=== PATIENT | female | born 1935 | race African-American/Black ===

== ENCOUNTER 2018-03-09 17:19 | Inpatient (IN) | payer MEDICARE, OTHER ==
[2018-03-09] MEDS ORDERED: Albuterol Nebulizer 2.5mg/3mL HHN STA (18:01)
[2018-03-09] MEDS ORDERED: Clindamycin 600mg/50mL 600 MG/50 ML BAG IV ONE (18:01)
[2018-03-09 18:06] LABS: HEMATOCRIT 44.5 % (41.0-60); HEMOGLOBIN 14.1 gm/dL (12-16); MEAN CELL VOLUME 95.1 fl (81-100); MEAN CORPUSCULAR HEMOGLOBIN 30.1 pg (27.0-31.0); MEAN CORPUSCULAR HGB CONC 31.7 pg (28.0-36.0); MEAN PLATELET VOLUME 7.6 fl; PLATELET COUNT 264 Th/cmm (150-400); RED BLOOD COUNT 4.68 Mil/cmm (3.80-5.20); RED CELL DISTRIBUTION WIDTH 15.2 % (11.5-20.0)
[2018-03-09] MEDS ORDERED: Albuterol Nebulizer 2.5mg/3mL HHN ONE (18:06)
[2018-03-09 18:13] LABS: WHITE BLOOD COUNT 16.3 Th/cmm (4.8-10.8)
[2018-03-09] MEDS ORDERED: Lactated Ringer 1,000 ML IV ONE (18:25)
[2018-03-09 18:28] LABS: ALB/GLOB RATIO 1.5 (1.0-1.8); ALBUMIN 3.8 gm/dL (3.7-5.3); ALKALINE PHOSPHATASE 85 U/L (34-104); ANION GAP 11.5 (7.0-16.0); BILIRUBIN,TOTAL 0.3 mg/dL (0.3-1.0); BUN - UREA NITROGEN 19 mg/dL (7-25); CALCIUM SERUM 10.3 mg/dL (8.6-10.3); CARBON DIOXIDE 36.9 mEq/L (21.0-31.0); CHLORIDE 100 mEq/L (98-107); CREATININE - SERUM 0.6 mg/dL (0.6-1.2); GLUCOSE 161 mg/dL (70-105); MAGNESIUM 2.3 mg/dL (1.9-2.7); PHOSPHOROUS 2.1 mg/dL (2.5-5.0); POTASSIUM SERUM 3.4 mEq/L (3.5-5.1); SGOT 11 U/L (13-39); SGPT/ALT 13 U/L (7-52); SODIUM SERUM 145 mEq/L (136-145); TOTAL PROTEIN,SERUM 6.4 gm/dL (6.0-8.3)
[2018-03-09 18:31] LABS: BAND NEUTROPHILE 4 % (0-10); LYMPHOCYTE 34 % (20-50); NEUTROPHILS 54 % (40-80)
[2018-03-09 18:32] LABS: MONOCYTE 8 % (2-10)
[2018-03-09] MEDS ORDERED: Sodium Phos / Potassium Phos 1.25 GM PACK PO ONE (20:03)
[2018-03-09] MEDS ORDERED: Potassium Chloride 20 mEq ER Tab PO ONE ×2 (20:03→20:14)
--- NOTE | 2018-03-09 20:14 | ED Physician Chart ---
ED Chief Complaint/HPI - Patient Information Date Seen:: 03/09/18 Time Seen:: 17:19 Chief Complaint:: sob and need for O2 History of Present Illness:: sob and need for O2 Allergies:: Allergies Allergy/AdvReac Type Severity Reaction Status Date / Time codeine Allergy Verified 03/09/18 17:25 Penicillins [PCN] Allergy Verified 03/09/18 17:25 Vitals:: Vital Signs - 8 hr 03/09/18 03/09/18 17:19 18:12 Temp 97.7 F HR 120 123 RR 20 18 BP 138/99 O2 Sat % 95 94 Historian:: Medical Records Review:: Nurse's Note Reviewed, Transfer documents Reviewed ED Review of Systems - Review of Systems General/Constitutional: No fever, No chills, No weight loss, No weakness, No diaphoresis, No edema, No loss of appetite Skin: No skin lesions, No rash, No bruising Head: No headache, No light-headedness Eyes: No loss of vision, No pain, No diplopia ENT: No earache, No nasal drainage, No sore throat, No tinnitus Neck: No neck pain, No swelling, No thyromegaly, No stiffness, No mass noted Cardio Vascular: No chest pain, No palpitations, No PND, No orthopnea, No edema Pulmonary: SOB, Cough, Sputum, No wheezing GI: No nausea, No vomiting, No diarrhea, No pain, No melena, No hematochezia, Constipation, No hematemesis G/U: No dysuria, No frequency, No hematuria Musculoskeletal: No bone or joint pain, No back pain, No muscle pain Endocrine: No polyuria, No polydipsia Psychiatric: No prior psych history, No depression, No anxiety, No suicidal ideation Hematopoietic: No bruising, No lymphadenopathy Allergic/Immuno: No urticaria, No angioedema Neurological: No syncope, No focal symptoms, No weakness, No paresthesia, No headache, No seizure, No dizziness, No confusion, No vertigo ED Past Medical History - Past Medical History Obtainable: No Past Medical History: HTN, DM, Asthma/COPD, PUD/GERD, Other (weakness; chronic pain syndrome; rheumatoid arthritis; cerebral infarction unspecified; pneumonia) Psychiatricy History: Depression, Schizophrenia Family Medical History - Family Member Mother History Unknown: Yes ED Physical Exam - Physical Examination General/Constitutional: Awake, Alert, GCS 15 Other Gen/Cons comments:: in mild to moderate respiratory distress overweight Head: Atraumatic Eyes: Lids, conjuctiva normal, PERRL, EOMI Skin: Nl inspection, No rash, No skin lesions, No ecchymosis, Well hydrated, No lymphadenopathy ENMT: External ears, nose nl Other ENMT comments:: early thrush on tongue? dentures in place Neck: Nontender, No nuchal rigidity, No stridor Other Respiratory comments:: rhonchi on both lung bases Cardio Vascular: RRR, No murmur, gallop, rubs, NL S1 S2 GI: No tenderness/rebounding/guarding, No organomegaly, No hernia, Normal BS's, Nondistended, No mass/bruits, No McBurney tenderness Extremities: No tenderness or effusion, Full ROM, normal strength in all extremities Other Extremities comments:: trace edema Neuro/Psych: Alert/oriented, Normal sensory exam, Normal motor strength, Judgement/insight normal, Mood normal, No focal deficits Misc: Normal back ED Labs/Radiology/EKG Results - Lab Results Results: Laboratory Tests 03/09/18 03/09/18 03/09/18 17:55 17:55 17:55 WBC 16.3 H RBC 4.68 Hgb 14.1 Hct 44.5 MCV 95.1 MCH 30.1 MCHC Differential 31.7 RDW 15.2 Plt Count 264 MPV 7.6 Add Manual Diff YES Band Neutrophils % 4 Neutrophils (Manual) 54 Lymphocytes 34 Monocytes 8 Sodium 145 Potassium 3.4 L Chloride 100 Carbon Dioxide 36.9 H Anion Gap 11.5 BUN 19 Creatinine 0.6 Est GFR ( Amer) TNP Est GFR (Non-Af Amer) TNP BUN/Creatinine Ratio 31.7 Glucose 161 H Whole Bld Lactic Acid Calcium 10.3 Phosphorus 2.1 L Magnesium 2.3 Total Bilirubin 0.3 AST 11 L ALT 13 Alkaline Phosphatase 85 Troponin I B-Natriuretic Peptide 23.0 Total Protein 6.4 Albumin 3.8 Globulin 2.6 Albumin/Globulin Ratio 1.5 03/09/18 03/09/18 17:55 17:55 WBC RBC Hgb Hct MCV MCH MCHC Differential RDW Plt Count MPV Add Manual Diff Band Neutrophils % Neutrophils (Manual) Lymphocytes Monocytes Sodium Potassium Chloride Carbon Dioxide Anion Gap BUN Creatinine Est GFR ( Amer) Est GFR (Non-Af Amer) BUN/Creatinine Ratio Glucose Whole Bld Lactic Acid 1.86 Calcium Phosphorus Magnesium Total Bilirubin AST ALT Alkaline Phosphatase Troponin I 0.02 B-Natriuretic Peptide Total Protein Albumin Globulin Albumin/Globulin Ratio ED Assessment - Assessment General Assessment: CXR: bilateral pneumonia more on the R than on the L. called Dr. Trimble for admit since he is covering for Dr. Avalos ED Septic Shock - . Is Septic Shock (SBP<90, OR Lactate>4 mmol\L) present?: No - <6hrs of presentation: Vital Signs: Vital Signs - 8 hr 03/09/18 03/09/18 17:19 18:12 Temp 97.7 F HR 120 123 RR 20 18 BP 138/99 O2 Sat % 95 94 ED Reassessment (Disposition) - Reassessment Reassessment Condition:: Improved - Diagnosis Diagnosis:: Bilateral pneumonia Hypoxia Oxygen dependence Leukocytosis Diabetes Hypertension Low potassium Low phosphorous weakness chronic pain syndrome rheumatoid arthritis cerebral infarction unspecified pneumonia - Patient Disposition Discharge/Transfer:: Acute Care w/in this hosp Admitted to:: Telemetry Admitting Medical Physician:: Gary Trimble Condition at Disposition:: Stable, Improved
[2018-03-09 21:35] VITALS: BP 131/93
[2018-03-09] MEDS ORDERED: Levofloxacin 500mg/100mL 500 MG/100 ML BAG IV ONE (21:44)
[2018-03-09] MEDS: D5-0.45NS 1,000 ML IV SCH (22:08)
[2018-03-09] MEDS: Levofloxacin 500mg/100mL 500 MG/100 ML BAG IV SCH (23:12)
[2018-03-09] MEDS ORDERED: Non-Formulary Item 1 EA (Oxycodone Hcl/Acetaminophen [Percocet 325 Mg-10 Mg*] 1 TAB) PO PRN (23:30)
[2018-03-09] MEDS ORDERED: Albuterol/Ipratropium Neb 3 ML AERS HHN ONE (23:49)
[2018-03-09] MEDS: Albuterol/Ipratropium Neb 3 ML AERS HHN PRN (23:54)
[2018-03-10] MEDS: methylPREDNISolone SS 40 mg Vial IV SCH ×3 (00:25→16:39)
[2018-03-10] MEDS: Albuterol/Ipratropium Neb 3 ML AERS HHN SCH ×4 (01:55→18:45)
[2018-03-10] MEDS: Fleet Enema 135 mL RC PRN (03:05)
[2018-03-10] MEDS: APAP/Oxycodone 5/325mg Tab PO PRN ×2 (08:41→16:37)
[2018-03-10] MEDS: Multivitamin w/ Minerals Tab PO SCH (08:47)
--- NOTE | 2018-03-10 09:40 | Diagnostic Imaging Report ---
Exam: Portable summation of chest. HISTORY: Shortness of breath. Findings: Portable upright examination of the chest at 1800 hours reviewed, no prior studies available comparison. Bony thorax intact. Bilateral shoulder prosthesis are noted. Mediastinal structures midline the heart is not enlarged. COPD changes are noted. The costophrenic angles are clear. Mild peribronchial thickening of the bases appreciated, early pneumonic infiltrate cannot be excluded. Follow-up exam is recommended. IMPRESSION: COPD changes. Mild atelectatic change in the bases, infiltrate cannot be excluded, follow-up exam is recommended.
--- NOTE | 2018-03-10 16:17 | Consultation ---
Consult Note - Consult Note Service Date: 03/10/18 Referring Physician: Gary Trimble Consult Note: PHYSICIAN Consultation Note: Date of Admission: 03/09/18 Purpose of Consultation: Pneumonia. UTI. Chief Complaint: Patient TORY CARRERA was admitted to [facility] with ALOC,PNEUMONIA. History of Present Illness: 82 year female with a history of dementia, admitted with shortness of breath and hypoxemia requiring oxygen, dyspnea on initial evaluation patient's temperature 97.7 degrees Fahrenheit and WBC count was 16, 000. Patient was suspected for pneumonia and started on antibiotic. Patient is unable to give any history. History taken from the chart. Past Medical History: HTN, DM, Asthma/COPD, PUD/GERD, CVA, rheumatoid arthritis , dementia. Allergies Allergy/AdvReac Type Severity Reaction Status Date / Time codeine Allergy Verified 03/09/18 17:25 Penicillins [PCN] Allergy Verified 03/09/18 17:25 Vital Signs Temp 97.6 F 03/10/18 16:07 Pulse 104 03/10/18 16:07 Resp 20 03/10/18 16:07 BP 99/72 03/10/18 16:07 Pulse Ox 95 03/10/18 16:07 Intake & Output 03/09/18 03/10/18 03/10/18 18:59 06:59 18:59 Intake Total 2185 Balance 2185 Weight (lbs) 81.647 kg 96.706 kg Intake: Intake, IV Amount 1945 Aztreonam 1 gm In 100 Dextrose 5% 50 ml @ 100 mls/hr IV Q12HR [facility] Rx#: [id number] Aztreonam 1 gm In 50 Dextrose 5% 50 ml @ 100 mls/hr IV Q8HR [facility] Rx#: [id number] Clindamycin 600mg/50mL 100 600 mg In 50 ml @ 100 mls /hr IV X1 ONE Rx#: [id number] D5-0.45NS 1,000 ml @ 75 595 mls/hr IV .[id number] [facility] Rx #:[id number] Lactated Ringer 1,000 ml 1000 @ 80 mls/hr IV .[id number] ONE Rx#:[id number] Levofloxacin 500mg/100mL 100 500 mg In 100 ml @ 100 mls/hr IV Q24HR [facility] Rx#: [id number] Oral 240 Other: # Voids 2 # Bowel Movements 1 Stool Characteristics Soft Formed Weight Source Estimated Bedscale Laboratory Results - last 24 hr 03/09/18 03/09/18 03/09/18 17:55 17:55 17:55 WBC 16.3 H RBC 4.68 Hgb 14.1 Hct 44.5 MCV 95.1 MCH 30.1 MCHC Differential 31.7 RDW 15.2 Plt Count 264 MPV 7.6 Add Manual Diff YES Band Neutrophils % 4 Neutrophils (Manual) 54 Lymphocytes 34 Monocytes 8 Sodium 145 Potassium 3.4 L Chloride 100 Carbon Dioxide 36.9 H Anion Gap 11.5 BUN 19 Creatinine 0.6 Est GFR ( Amer) TNP Est GFR (Non-Af Amer) TNP BUN/Creatinine Ratio 31.7 Glucose 161 H Whole Bld Lactic Acid Calcium 10.3 Phosphorus 2.1 L Magnesium 2.3 Total Bilirubin 0.3 AST 11 L ALT 13 Alkaline Phosphatase 85 Troponin I B-Natriuretic Peptide 23.0 Total Protein 6.4 Albumin 3.8 Globulin 2.6 Albumin/Globulin Ratio 1.5 03/09/18 03/09/18 03/10/18 17:55 17:55 03:00 WBC RBC Hgb Hct MCV MCH MCHC Differential RDW Plt Count MPV Add Manual Diff Band Neutrophils % Neutrophils (Manual) Lymphocytes Monocytes Sodium Potassium Chloride Carbon Dioxide Anion Gap BUN Creatinine Est GFR ( Amer) Est GFR (Non-Af Amer) BUN/Creatinine Ratio Glucose Whole Bld Lactic Acid 1.86 Calcium Phosphorus Magnesium Total Bilirubin AST ALT Alkaline Phosphatase Troponin I 0.02 0.04 B-Natriuretic Peptide Total Protein Albumin Globulin Albumin/Globulin Ratio Home Medication Medication Instructions Recorded Type Acetaminophen [Tylenol] 650 mg PO Q4H PRN 03/09/18 History Baclofen [Lioresal*] 10 mg PO HS 03/09/18 History Benazepril HCl 5 mg PO DAILY 03/09/18 History Carvedilol [Coreg] 3.125 mg PO BID 03/09/18 History Celecoxib 100 mg PO BID 03/09/18 History Diclofenac Sodium [Voltaren] 2 gm TP Q12H PRN 03/09/18 History Fleet Enema 135 ml RC Q2D PRN 03/09/18 History Furosemide [Lasix] 40 mg PO DAILY 03/09/18 History Gabapentin 300 mg PO TID 03/09/18 History Ipratropium/Albuterol Sulfate 3 ml IH Q4H PRN 03/09/18 History [Iprat-Albut 0.5-3(2.5) mg/3 ml] Lidocaine 2% Gel [Xylocaine 2% Gel] 5 ml TP Q8H 03/09/18 History Loratadine 10 mg PO DAILY 03/09/18 History Magnesium Hydroxide [Milk of 30 ml PO HS PRN 03/09/18 History Magnesia] Melatonin 3 mg PO HS 03/09/18 History Multivitamin with Minerals 1 tab PO DAILY 03/09/18 History [Nature's Blend Multiple Vitamin with Minerals] Nitroglycerin [Nitrostat*] 0.4 mg SL Q5MIN PRN 03/09/18 History Oxycodone HCl/Acetaminophen 1 tab PO Q6H PRN 03/09/18 History [Percocet 325 mg-10 mg*] Pantoprazole [Protonix] 20 mg PO DAILY 03/09/18 History Potassium Chloride 10 meq PO DAILY 03/09/18 History Prednisone [Deltasone] 40 mg PO DAILY 03/09/18 History Sennosides A and B [Senna] 8.6 mg PO HS 03/09/18 History Tramadol HCl [Ultram] 100 mg PO Q8H PRN 03/09/18 History Current Medications Generic Name Dose Route Start Last Admin Trade Name [facility] PRN Reason Stop Dose Admin Acetaminophen 650 mg 03/10/18 01:49 03/10/18 02:11 Tylenol PO 05/09/18 01:48 650 mg Q6H PRN Administration mild pain Albuterol/Ipratropium 3 ml 03/10/18 01:00 03/10/18 13:38 Duoneb Neb [facility] 05/09/18 00:59 3 ml Q6HRT [facility] Administration Albuterol/Ipratropium 3 ml 03/09/18 23:33 03/09/18 23:54 Duoneb Neb [facility] 05/08/18 23:32 3 ml Q2HRT PRN Administration Wheezing Baclofen 10 mg 03/10/18 21:00 Lioresal PO 05/09/18 20:59 HS [facility] Benazepril HCl 5 mg 03/10/18 09:00 03/10/18 08:42 Lotensin PO 05/09/18 08:59 5 mg DAILY [facility] Administration Carvedilol 3.125 mg 03/10/18 08:00 03/10/18 08:41 Coreg PO 05/09/18 07:59 3.125 mg BIDWM [facility] Administration Celecoxib 100 mg 03/10/18 09:00 03/10/18 08:43 Celebrex PO 05/09/18 08:59 100 mg BID [facility] Administration Gabapentin 300 mg 03/10/18 09:00 03/10/18 08:42 Neurontin PO 05/09/18 08:59 300 mg TID [facility] Administration Aztreonam 1 gm/ Dextrose 50 mls @ 100 mls/hr 03/09/18 21:00 03/10/18 06:07 IV 05/08/18 20:59 Not Given Q8HR [facility] Dextrose/Sodium Chloride 1,000 mls @ 75 mls/hr 03/09/18 20:58 03/10/18 06:04 D5-0.45ns IV 05/08/18 20:57 75 mls/hr .[id number] [facility] Infusion Levofloxacin 500 mg in 100 mls @ 100 mls/hr 03/09/18 21:30 03/10/18 00:14 Levaquin Pb IV 05/08/18 21:29 Infused Q24HR [facility] Infusion Loratadine 10 mg 03/10/18 09:00 03/10/18 08:42 Claritin PO 05/09/18 08:59 10 mg DAILY [facility] Administration Methylprednisolone Sodium Succinate 40 mg 03/10/18 00:00 03/10/18 08:46 Solu-Medrol IV 05/09/18 00:00 Not Given Q8H [facility] Nitroglycerin 0.4 mg 03/09/18 23:30 Nitrostat SL 05/08/18 23:29 Q5MIN PRN Chest Pain Oxycodone/Acetaminophen 1 tab 03/10/18 08:00 03/10/18 08:41 Percocet 5/325mg Oral Tab PO 05/09/18 07:59 1 tab Q6H PRN Administration severe pain Senna 8.6 mg 03/10/18 21:00 Senna PO 05/09/18 20:59 HS [facility] Sodium Phosphate 135 ml 03/09/18 23:30 03/10/18 03:05 Fleet Enema RC 05/08/18 23:29 135 ml Q2D PRN Administration Constipation Review of Systems: A 12 point ROS was reviewed with the pertinent positive and negatives noted in the HPI. Social History Smoking Status Former smoker Family Medical History Family Medical History Start: 03/09/18 20: 55 Freq: ONCE Status: Active Protocol: Document 03/09/18 20:55 [id number] (Rec: 03/09/18 23:50 [id number] ) Family Medical History Mother History Unknown Yes Physical Exam: General: Comfortable not in acute distress. HEENT: Head: Normocephalic. Oral cavity: Moist, pink tongue. Eyes: Pallor is present. Pupils PERRLA. EOMI. Neck: Supple, no JVD. No use of accessory neck muscles. Cardio: S1 and S2 within normal limits regular rhythm no murmur or gallop Respiratory: Vesicular breath sound no crackles no wheezing. Abdominal: Soft, nontender, nondistended, bowel sounds present Genital/Urinary: Deferred. Extremities: No cyanosis, no clubbing, no edema. Neurological: Alert, but unable to communicate. Assessment: 1. Leukocytosis. Suspect sepsis. 2. Pneumonia. 3. Dementia. 4. Diabetes mellitus type 2. 5. Hypertension. 6. Obesity. 7. Dementia mellitus type II 8. Rheumatoid arthritis. 9. History of CVA. Plan: Continue Levaquin and aztreonam. Follow-up sepsis workup. Thank you, Dr. Trimble for involving me in taking care of this patient Signed, Joshua Gilmore M.D. 03/10/[id number]
[2018-03-10] MEDS ORDERED: Lidocaine 2% Gel 5 mL TP ONE (17:41)
--- NOTE | 2018-03-10 18:36 | History & Physical ---
ADMIT DATE: 03/10/2018 PATIENT IDENTIFICATION: The patient is an 82-year-old female. CHIEF COMPLAINT: "I want to sleep." HISTORY OF PRESENT ILLNESS: This is an 82[place]year[place], brought into the Emergency Room for evaluation of shortness of breath. The patient was worked up in the Emergency Room, noted to have pneumonitis. The patient is advised to be admitted for further management. Due to the patient's underlying medical problem, I am unable to get meaningful history from patient. PAST MEDICAL HISTORY: Remarkable for: 1. DJD. 2. GERD. 3. Chronic pain. 4. Hypertension. 5. Hyperlipidemia. 6. Peripheral neuropathy. 7. Dementia. 8. Psychotic disorder. 9. Congestive heart failure. MEDICATIONS AT HOME: Diclofenac, Lasix, potassium, albuterol and Atrovent nebulizer treatment, lidocaine gel, pantoprazole, prednisone, tramadol, Tylenol, baclofen, benazepril, carvedilol, Fleets Enema, gabapentin, melatonin, nitroglycerin, oxycodone p.r.n., and senna. ALLERGIES: THE PATIENT IS ALLERGIC TO PENICILLIN AND CODEINE. SOCIAL HISTORY: The patient [place]. The patient has no history of smoking cigarette, alcohol, or drug use. FAMILY MEDICAL HISTORY: Unavailable. REVIEW OF SYSTEMS: Unable to get meaningful history from the patient due to current condition. PHYSICAL EXAMINATION: GENERAL: The patient is alert, awake, not cooperative, lying in the bed. VITAL SIGNS: Temperature 97.6, pulse is 106, respiratory rate is 18, blood pressure 100/70. HEENT: Normocephalic, atraumatic. Extraocular muscles are intact. Tongue more pink and coated. Poor dentition noted. NECK: Supple. No JVD, no hepatojugular reflux. No lymphadenopathy, thyromegaly or carotid bruit. HEART: Both heart sounds are regular. CHEST AND LUNGS: Equal in expansion with diffuse expiratory wheezing. ABDOMEN: Soft. No guarding, no rigidity. Liver, spleen not palpable. No palpable mass. EXTREMITIES: No edema, no cyanosis. Peripheral pulses are +1. No calf tenderness. NEUROLOGIC: Alert, awake, but does not follow any commands. AVAILABLE DIAGNOSTIC DATA: Performed in the Emergency Room, which includes white count of 16.3, hemoglobin 14.1, platelet count 264, potassium 3.4, BUN and creatinine 19 and 0.6, glucose of 161. Liver functions are normal. This patient had a chest x-ray, remarkable for atelectasis versus infiltrate on the right lower lobe. CLINICAL IMPRESSION: 1. Right lower lobe pneumonia. 2. Respiratory insufficiency with bronchospasm ruled out underlying asthma and chronic obstructive pulmonary disease. 3. Hypertension. 4. Congestive heart failure. 5. Coronary artery disease. 6. Degenerative joint disease. 7. Psychotic disorder. 8. Chronic pain. PLAN: 1. The patient will be admitted to telemetry unit, provide oxygen. 2. Nebulizer treatment. 3. IV antibiotic. 4. Infectious Disease consultation. 5. Psych consultation. 6. Appropriate home medicine reconciliation. 7. General nursing care. 8. Cardiac enzymes. 9. Follow lab. 10. Follow consult and recommendation. 11. Care plan reviewed and discussed with staff. JOB# [id number]
[2018-03-10] MEDS ORDERED: Non-Formulary Item 1 EA (Melatonin [Melatonin] 3 MG) PO SCH (21:00)
[2018-03-10] MEDS: Levofloxacin 500mg/100mL 500 MG/100 ML BAG IV SCH (21:15)
[2018-03-11] MEDS: APAP/Oxycodone 5/325mg Tab PO PRN ×3 (01:41→20:40)
[2018-03-11] MEDS: Albuterol/Ipratropium Neb 3 ML AERS HHN SCH ×5 (01:59→18:40)
[2018-03-11] MEDS: methylPREDNISolone SS 40 mg Vial IV SCH ×4 (02:06→23:10)
[2018-03-11] MEDS: Multivitamin w/ Minerals Tab PO SCH (08:20)
[2018-03-11 09:27] LABS: HEMATOCRIT 37.1 % (41.0-60); HEMOGLOBIN 12.4 gm/dL (12-16); MEAN CELL VOLUME 94.9 fl (81-100); MEAN CORPUSCULAR HEMOGLOBIN 31.7 pg (27.0-31.0); MEAN CORPUSCULAR HGB CONC 33.4 pg (28.0-36.0); MEAN PLATELET VOLUME 8.2 fl; RED BLOOD COUNT 3.91 Mil/cmm (3.80-5.20); RED CELL DISTRIBUTION WIDTH 15.5 % (11.5-20.0); WHITE BLOOD COUNT 8.8 Th/cmm (4.8-10.8)
[2018-03-11 09:30] LABS: ALB/GLOB RATIO 1.4 (1.0-1.8); ALBUMIN 3.1 gm/dL (3.7-5.3); ALKALINE PHOSPHATASE 69 U/L (34-104); ANION GAP 12.2 (7.0-16.0); BILIRUBIN,TOTAL 0.3 mg/dL (0.3-1.0); BUN - UREA NITROGEN 13 mg/dL (7-25); CALCIUM SERUM 9.2 mg/dL (8.6-10.3); CARBON DIOXIDE 35.9 mEq/L (21.0-31.0); CHLORIDE 96 mEq/L (98-107); CREATININE - SERUM 0.4 mg/dL (0.6-1.2); GLUCOSE 180 mg/dL (70-105); POTASSIUM SERUM 4.1 mEq/L (3.5-5.1); SGOT 9 U/L (13-39); SGPT/ALT 10 U/L (7-52); SODIUM SERUM 140 mEq/L (136-145); TOTAL PROTEIN,SERUM 5.3 gm/dL (6.0-8.3)
--- NOTE | 2018-03-11 09:51 | Diagnostic Imaging Report ---
Exam: CT examination of chest. HISTORY: Shortness of breath. Total DLP equals 418 CTDI equals 11.4 Findings: Multiple contiguous thin section of the chest were obtained without administration of contrast material from thoracic outlet to the upper abdomen the study therefore is limited The study demonstrates the evidence for left basilar pneumonia pleural thickening and small effusion Mediastinal structures midline adenopathy is difficult to appreciated due to lack of contrast material. The right lung parenchyma is well aerated. There is evidence for right basilar atelectasis early infiltrate cannot be excluded. Follow-up examination is recommended. Normal appearance with vessels appreciated adenopathy cannot be excluded due to lack of contrast material Bony structures demonstrate no evidence for lytic or blastic changes. IMPRESSION: left lower lobe pneumonia small effusion pleural thickening.
[2018-03-11 11:22] LABS: PLATELET COUNT 37 Th/cmm (150-400)
[2018-03-11 12:47] LABS: LYMPHOCYTE 39 % (20-50); MONOCYTE 6 % (2-10); NEUTROPHILS 55 % (40-80); PLATELET ESTIMATE DECREASED PLATELETS (NORMAL)
[2018-03-11] MEDS ORDERED: Acetylcysteine 10% 10 ML VIAL HHN SCH (13:00)
[2018-03-11 13:28] LABS: % BASOPHILS 0.3 % (0.0-2.0); % EOSINOPHILS 0.7 % (0.0-5.0); % LYMPHOCYTES 20.6 % (20.0-50.0); % MONOCYTES 3.4 % (2.0-10.0); EOSINOPHILE ABSOLUTE 0.1 Th/cmm (0.1-0.4); HEMATOCRIT 38.9 % (41.0-60); HEMOGLOBIN 12.8 gm/dL (12-16); LYMPHOCYTE ABSOLUTE 2.3 Th/cmm (1.5-3.0); MEAN CELL VOLUME 95.1 fl (81-100); MEAN CORPUSCULAR HEMOGLOBIN 31.2 pg (27.0-31.0); MEAN CORPUSCULAR HGB CONC 32.8 pg (28.0-36.0); MEAN PLATELET VOLUME 7.7 fl; MONOCYTE ABSOLUTE 0.4 Th/cmm (0.3-1.0); NEUTROPHILE ABSOLUTE 8.4 Th/cmm (1.8-8.0); RED BLOOD COUNT 4.09 Mil/cmm (3.80-5.20); RED CELL DISTRIBUTION WIDTH 14.4 % (11.5-20.0)
[2018-03-11 13:29] LABS: WHITE BLOOD COUNT 11.2 Th/cmm (4.8-10.8)
[2018-03-11 13:30] LABS: PLATELET COUNT 209 Th/cmm (150-400)
--- NOTE | 2018-03-11 15:15 | Consultation ---
DATE OF CONSULTATION: 03/11/2018 PSYCHIATRIC CONSULT AGE: 82. SEX: Female. PHYSICIAN: Dr. Trimble. TYPE OF THE REPORT: Psychiatric consult. REASON FOR THE CONSULT: Depression. HISTORY OF PRESENT ILLNESS: The patient is an 82-year-old female who was admitted to the hospital because of shortness of breath. The patient also wanted to sleep. The patient has been in a depressed mood. The patient said "I have been depressed most of my life." The patient added that she has been having lack of motivations and lack of energy. She also added that she wanted to see a psychiatrist because of her depression. She denies any intention to harm herself or others. She is also complaining of insomnia. PAST PSYCHIATRIC HISTORY: The patient has history of depression. The patient also might have history of bipolar. PAST MEDICAL HISTORY: The patient has degenerative joint disease as well as gastroesophageal reflux disease, hypertension, hyperlipidemia, peripheral neuropathy, congestive heart failure and chronic pain. SOCIAL HISTORY: The patient lives in [facility]. She has 6 children, 4 daughters and 2 sons. The patient denied alcohol or street drug use. She denies legal issues or abuse issues. MENTAL STATUS EXAM: The patient appears slightly older than her stated age. Anxious. Flat affect. In a depressed mood. Thought processes are mainly goal directed. The patient denied any hallucinations or delusions. She denies any thoughts of suicide or homicide. The patient is alert and oriented to time, place, person and situation. Intact immediate, recent and remote memories. Fair insight and fair judgment. She seems to be of average intelligence based on her ability. ASSESSMENT: PRIMARY DIAGNOSIS: Major depression, severe, recurrent, without psychotic features. Rule out bipolar disorder, depressed episode. TREATMENT PLAN: We will start the patient on Lexapro and we will adjust the dose. We will continue monitoring the patient and evaluating her condition. Thanks to Dr. Trimble and we will follow with you. [facility]# [id number]
[2018-03-11] MEDS: Acetylcysteine 10% 10 ML VIAL HHN SCH ×2 (15:37→22:22)
[2018-03-11] MEDS: Levofloxacin 500mg/100mL 500 MG/100 ML BAG IV SCH (20:57)
[2018-03-11] MEDS: D5-0.45NS 1,000 ML IV SCH (22:07)
--- NOTE | 2018-03-12 02:27 | Progress Notes ---
DATE: IDENTIFICATION: An 82-year-old female. SUBJECTIVE: The patient seen and examined. The patient is lying in the bed. The patient continues to cough and congested. Follow up labs reveal a platelet count of 37,000, which is a big drop from 264. The patient has no active bleeding. The patient has productive cough and congestion at this time bringing up green yellow phlegm. PHYSICAL EXAMINATION: VITAL SIGNS: Temperature 97, pulse is 91, respiratory rate 18, and blood pressure 112/60. HEENT: No facial asymmetry. NECK: Supple, no JVD. HEART: Regular. CHEST AND LUNGS: Equal in expansion with expiratory wheezing. ABDOMEN: Soft, no guarding, no rigidity. Bowel sounds present. No palpable mass. EXTREMITIES: No edema. CLINICAL IMPRESSION: 1. Right lower lobe pneumonia. 2. Bronchospasm. 3. Thrombocytopenia, needs to rule out lab error. 4. Psychotic disorder. 5. Degenerative joint disease. 6. Chronic pain syndrome. PLAN: 1. Oxygen. 2. Nebulizer treatment. 3. Mucomyst. 4. IV antibiotic. 5. Repeat CBC. 6. General nursing care. 7. Follow lab. 8. Follow consult and recommendation. 9. Care plan has discussed with staff. JOB# [id number]
[2018-03-12] MEDS: Escitalopram Oxalate 5 mg Tab PO SCH ×2 (05:25→20:09)
[2018-03-12] MEDS: Acetylcysteine 10% 10 ML VIAL HHN SCH ×2 (06:01→19:06)
[2018-03-12] MEDS: Albuterol/Ipratropium Neb 3 ML AERS HHN SCH ×4 (06:02→19:02)
[2018-03-12] MEDS: methylPREDNISolone SS 40 mg Vial IV SCH ×2 (08:03→15:23)
[2018-03-12] MEDS: Multivitamin w/ Minerals Tab PO SCH (08:06)
[2018-03-12] MEDS: APAP/Oxycodone 5/325mg Tab PO PRN ×3 (08:12→23:51)
[2018-03-12] MEDS ORDERED: methylPREDNISolone SS 40 mg Vial IV ONE (10:20)
[2018-03-12] MEDS ORDERED: Potassium Chloride 10 mEq ER Tab PO ONE (10:41)
[2018-03-12] MEDS: Potassium Chloride 10 mEq ER Tab PO SCH (10:45)
--- NOTE | 2018-03-12 11:24 | Infectious Disease Prog Note ---
Infectious Disease Subjective - Review of Systems Service Date: 03/12/18 Subjective: There is no new change, no fever. Infectious Disease Objective - Results Result Diagrams: 03/11/18 13:02 03/11/18 09:02 Recent Labs: Laboratory Last Values WBC 11.2 Th/cmm (4.8-10.8) H D 03/11/18 13:02 RBC 4.09 Mil/cmm (3.80-5.20) 03/11/18 13:02 Hgb 12.8 gm/dL (12-16) 03/11/18 13:02 Hct 38.9 % (41.0-60) L 03/11/18 13:02 MCV 95.1 fl (81-100) 03/11/18 13:02 MCH 31.2 pg (27.0-31.0) H 03/11/18 13:02 MCHC Differential 32.8 pg (28.0-36.0) 03/11/18 13:02 RDW 14.4 % (11.5-20.0) 03/11/18 13:02 Plt Count 209 Th/cmm (150-400) D 03/11/18 13:02 MPV 7.7 fl 03/11/18 13:02 Add Manual Diff YES 03/11/18 09:02 Neutrophils % 75.0 % (40.0-80.0) 03/11/18 13:02 Band Neutrophils % 4 % (0-10) 03/09/18 17:55 Lymphocytes % 20.6 % (20.0-50.0) 03/11/18 13:02 Monocytes % 3.4 % (2.0-10.0) 03/11/18 13:02 Eosinophils % 0.7 % (0.0-5.0) 03/11/18 13:02 Basophils % 0.3 % (0.0-2.0) 03/11/18 13:02 Neutrophils (Manual) 55 % (40-80) 03/11/18 09:02 Lymphocytes 39 % (20-50) 03/11/18 09:02 Monocytes 6 % (2-10) 03/11/18 09:02 Platelet Estimate DECREASED PLATELETS (NORMAL) 03/11/18 09:02 Sodium 140 mEq/L (136-145) 03/11/18 09:02 Potassium 4.1 mEq/L (3.5-5.1) 03/11/18 09:02 Chloride 96 mEq/L (98-107) L 03/11/18 09:02 Carbon Dioxide 35.9 mEq/L (21.0-31.0) H 03/11/18 09:02 Anion Gap 12.2 (7.0-16.0) 03/11/18 09:02 BUN 13 mg/dL (7-25) 03/11/18 09:02 Creatinine 0.4 mg/dL (0.6-1.2) L 03/11/18 09:02 Est GFR ( Amer) TNP 03/11/18 09:02 Est GFR (Non-Af Amer) TNP 03/11/18 09:02 BUN/Creatinine Ratio 32.5 03/11/18 09:02 Glucose 180 mg/dL (70-105) H 03/11/18 09:02 Whole Bld Lactic Acid 1.86 mmol/L (0.60-1.99) 03/09/18 17:55 Calcium 9.2 mg/dL (8.6-10.3) 03/11/18 09:02 Phosphorus 2.1 mg/dL (2.5-5.0) L 03/09/18 17:55 Magnesium 2.3 mg/dL (1.9-2.7) 03/09/18 17:55 Total Bilirubin 0.3 mg/dL (0.3-1.0) 03/11/18 09:02 AST 9 U/L (13-39) L 03/11/18 09:02 ALT 10 U/L (7-52) 03/11/18 09:02 Alkaline Phosphatase 69 U/L (34-104) 03/11/18 09:02 Troponin I 0.03 ng/mL (0.01-0.05) 03/10/18 17:00 B-Natriuretic Peptide 23.0 pg/mL (5.0-100.0) 03/09/18 17:55 Total Protein 5.3 gm/dL (6.0-8.3) L 03/11/18 09:02 Albumin 3.1 gm/dL (3.7-5.3) L 03/11/18 09:02 Globulin 2.2 gm/dL 03/11/18 09:02 Albumin/Globulin Ratio 1.4 (1.0-1.8) 03/11/18 09:02 - Physical Exam Vitals and I&O: Vital Signs Temp 96.2 F 03/12/18 07:56 Pulse 110 03/12/18 10:44 Resp 18 03/12/18 10:43 BP 158/120 03/12/18 10:44 Pulse Ox 94 03/12/18 10:43 Intake & Output 03/11/18 03/12/18 03/12/18 18:59 06:59 18:59 Intake Total 650 200 Balance 650 200 Weight (lbs) 101.151 kg 97.069 kg Intake: Intake, IV Amount 50 50 Aztreonam 1 gm In 50 50 Dextrose 5% 50 ml @ 100 mls/hr IV Q8HR [facility] Rx#: [id number] Oral 600 150 Other: # Voids 4 1 # Bowel Movements 1 Stool Characteristics Soft Soft Formed Weight Source Bedscale Bedscale Active Medications: Current Medications Acetaminophen (Tylenol) 650 mg PO Q6H PRN PRN Reason: mild pain Stop: 05/09/18 01:48 Acetylcysteine (Mucomyst 10%) 3 ml HHN Q8HR [facility] Stop: 05/10/18 12:59 Last Admin: 03/12/18 06:01 Dose: 3 ml Albuterol/Ipratropium (Duoneb Neb) 3 ml HHN Q2HRT PRN PRN Reason: Wheezing Stop: 05/08/18 23:32 Last Admin: 03/09/18 23:54 Dose: 3 ml Albuterol/Ipratropium (Duoneb Neb) 3 ml HHN [id number] Stop: 05/10/18 14:59 Last Admin: 03/12/18 10:41 Dose: 3 ml Baclofen (Lioresal) 10 mg PO HS [facility] Stop: 05/09/18 20:59 Last Admin: 03/11/18 20:36 Dose: 10 mg Benazepril HCl (Lotensin) 5 mg PO DAILY [facility] Stop: 05/09/18 08:59 Last Admin: 03/12/18 08:05 Dose: 5 mg Carvedilol (Coreg) 12.5 mg PO BIDWM [facility] Stop: 05/11/18 10:29 Last Admin: 11/26/18 10:44 Dose: 12.5 mg Celecoxib (Celebrex) 100 mg PO BID [facility] Stop: 05/09/18 08:59 Last Admin: 03/12/18 08:04 Dose: 100 mg Escitalopram Oxalate (Lexapro) 5 mg PO HS [facility]; Protocol Stop: 05/10/18 20:59 Last Admin: 03/12/18 05:25 Dose: Not Given Furosemide (Lasix) 40 mg PO DAILY [facility] Stop: 05/11/18 10:14 Last Admin: 03/12/18 10:43 Dose: 40 mg Gabapentin (Neurontin) 300 mg PO TID [facility] Stop: 05/09/18 08:59 Last Admin: 03/12/18 08:06 Dose: 300 mg Guaifenesin (Mucinex) 600 mg PO Q12HR [facility] Stop: 05/11/18 10:14 Last Admin: 03/12/18 10:43 Dose: 600 mg Aztreonam 1 gm/ Dextrose 50 mls @ 100 mls/hr IV Q8HR [facility] Stop: 05/08/18 20:59 Last Admin: 03/12/18 05:17 Dose: 100 mls/hr Levofloxacin (Levaquin Pb) 500 mg in 100 mls @ 100 mls/hr IV Q24HR [facility] Stop: 05/08/18 21:29 Last Admin: 03/11/18 20:57 Dose: 100 mls/hr Loratadine (Claritin) 10 mg PO DAILY [facility] Stop: 05/09/18 08:59 Last Admin: 03/12/18 08:04 Dose: 10 mg Methylprednisolone Sodium Succinate (Solu-Medrol) 40 mg IV Q8H [facility] Stop: 05/09/18 00:00 Last Admin: 03/12/18 08:03 Dose: 40 mg Nitroglycerin (Nitrostat) 0.4 mg SL Q5MIN PRN PRN Reason: Chest Pain Stop: 05/08/18 23:29 Oxycodone/Acetaminophen (Percocet 5/325mg Oral Tab) 1 tab PO Q6H PRN PRN Reason: severe pain Stop: 05/09/18 07:59 Last Admin: 03/12/18 08:12 Dose: 1 tab Potassium Chloride (Klor-Con) 10 meq PO DAILY [facility] Stop: 05/11/18 10:14 Last Admin: 03/12/18 10:45 Dose: 10 meq Senna (Senna) 8.6 mg PO HS [facility] Stop: 05/09/18 20:59 Last Admin: 03/11/18 20:36 Dose: 8.6 mg Sodium Phosphate (Fleet Enema) 135 ml RC Q2D PRN PRN Reason: Constipation Stop: 05/08/18 23:29 Last Admin: 03/10/18 03:05 Dose: 135 ml General: no acute distress, well developed, well nourished HEENT: atraumatic, normocephalic, PERRLA Neck: supple, no thyromegaly, no lymphadenopathy Cardiovascular: S1S2, regular Lungs: clear to auscultation bilaterally, clear to percussion Abdomen: soft, no tender, no distended Extremities: no cyanosis, no clubbing, no edema Neurological: awake, alert Skin: intact Infectious Disease Assmt/Plan - Assessment Assessment: 1. Leukocytosis. Suspect sepsis. 2. Pneumonia. 3. Dementia. 4. Diabetes mellitus type 2. 5. Hypertension. 6. Obesity. 7. Dementia mellitus type II 8. Rheumatoid arthritis. 9. History of CVA. - Plan Plan: Continue levaquin, DC azactam. Depending on the culture report will define final antibiotic therapy.
[2018-03-12] MEDS: Levofloxacin 500mg/100mL 500 MG/100 ML BAG IV SCH (21:53)
[2018-03-12] MEDS: Albuterol/Ipratropium Neb 3 ML AERS HHN PRN (23:57)
[2018-03-13] MEDS: methylPREDNISolone SS 40 mg Vial IV SCH ×3 (00:18→16:44)
--- NOTE | 2018-03-13 01:22 | Progress Notes ---
DATE: 03/12/2018 I am covering for Dr. Crowder. SUBJECTIVE: Case is discussed with staff of the patient and reviewed records. This is an 82-year-old female who was admitted on 03/09/2018 because of shortness of breath. The patient has been depressed most of her life. She added that she has been having lack of motivation and energy. She wanted to see a Psychiatry because of her depression. She denies any intention to harm herself or anybody. Complains of not sleeping well. The patient continues to be depressed and overwhelmed. She denies any intent to harm herself or anybody. She has been compliant with the medication with no side effects, no sedation, and no nausea. She is on Lexapro 5 mg daily. PLAN: I would recommend to continue her medication and follow up with her psychiatrist when discharged. Thank you very much for allowing me to participate in the care of this most interesting lady. JOB# [id number]
[2018-03-13] MEDS: Albuterol/Ipratropium Neb 3 ML AERS HHN PRN ×2 (02:27→22:55)
[2018-03-13] MEDS: Acetylcysteine 10% 10 ML VIAL HHN SCH ×4 (02:30→22:55)
[2018-03-13] MEDS: Albuterol/Ipratropium Neb 3 ML AERS HHN SCH ×4 (06:56→18:56)
[2018-03-13 07:16] LABS: % BASOPHILS 0.2 % (0.0-2.0); % EOSINOPHILS 0.1 % (0.0-5.0); % LYMPHOCYTES 11.2 % (20.0-50.0); % MONOCYTES 2.2 % (2.0-10.0); % NEUTROPHILS 86.3 % (40.0-80.0); HEMATOCRIT 38.7 % (41.0-60); LYMPHOCYTE ABSOLUTE 1.4 Th/cmm (1.5-3.0); MEAN CELL VOLUME 93.7 fl (81-100); MEAN CORPUSCULAR HEMOGLOBIN 31.4 pg (27.0-31.0); MEAN CORPUSCULAR HGB CONC 33.5 pg (28.0-36.0); MEAN PLATELET VOLUME 8.1 fl; MONOCYTE ABSOLUTE 0.3 Th/cmm (0.3-1.0); NEUTROPHILE ABSOLUTE 10.8 Th/cmm (1.8-8.0); PLATELET COUNT 236 Th/cmm (150-400); RED BLOOD COUNT 4.13 Mil/cmm (3.80-5.20); RED CELL DISTRIBUTION WIDTH 14.5 % (11.5-20.0); WHITE BLOOD COUNT 12.5 Th/cmm (4.8-10.8)
[2018-03-13 07:45] LABS: ALB/GLOB RATIO 1.5 (1.0-1.8); ALBUMIN 3.4 gm/dL (3.7-5.3); ALKALINE PHOSPHATASE 66 U/L (34-104); ANION GAP 12.2 (7.0-16.0); BILIRUBIN,TOTAL 0.3 mg/dL (0.3-1.0); BUN - UREA NITROGEN 17 mg/dL (7-25); CALCIUM SERUM 9.7 mg/dL (8.6-10.3); CHLORIDE 98 mEq/L (98-107); CREATININE - SERUM 0.5 mg/dL (0.6-1.2); GLUCOSE 136 mg/dL (70-105); MAGNESIUM 2.1 mg/dL (1.9-2.7); POTASSIUM SERUM 4.2 mEq/L (3.5-5.1); SGOT 10 U/L (13-39); SGPT/ALT 11 U/L (7-52); SODIUM SERUM 137 mEq/L (136-145); TOTAL PROTEIN,SERUM 5.7 gm/dL (6.0-8.3)
--- NOTE | 2018-03-13 07:57 | Progress Notes ---
DATE: 03/12/2018 PATIENT'S ID: An 82-year-old female. SUBJECTIVE: The patient seen and examined. The patient continues to cough and bringing up yellow phlegm. CT scan of the chest revealed left lower lobe pneumonia with some effusion. Blood pressure is continues to be elevated. The patient was taking antihypertensive medication along with the diuretics as well. PHYSICAL EXAMINATION: VITAL SIGNS: Temperature 96.2, pulse is 100, respiratory rate is 20, blood pressure is 180/100. HEENT: No facial asymmetry. NECK: Supple, no JVD. HEART: Regular. CHEST AND LUNGS: Equal in expansion, expiratory wheezing throughout. ABDOMEN: Soft. No guarding or rigidity. Bowel sounds present. No palpable mass. EXTREMITIES: No edema. CLINICAL IMPRESSION: 1. Left lower lobe pneumonia. 2. Bronchospasm. 3. Hypertension. 4. Degenerative joint disease. 5. Dementia. 6. Psychotic disorder. PLAN: 1. Adjust antihypertensive medicine. 2. Continue her benazepril and add Lasix and potassium. 3. Nebulizer treatment. 4. IV antibiotic. 5. Mucinex. 6. General nursing care. 7. Follow lab. 8. Follow consult recommendation. 9. Care plan reviewed and discussed with staff. JOB# [id number]
[2018-03-13] MEDS: Multivitamin w/ Minerals Tab PO SCH (08:17)
[2018-03-13] MEDS: Potassium Chloride 10 mEq ER Tab PO SCH (08:17)
[2018-03-13] MEDS: APAP/Oxycodone 5/325mg Tab PO PRN (11:55)
--- NOTE | 2018-03-13 12:07 | Infectious Disease Prog Note ---
Infectious Disease Subjective - Review of Systems Service Date: 03/13/18 Subjective: There is no new change, no fever. Infectious Disease Objective - Results Result Diagrams: 03/13/18 06:30 03/13/18 06:30 Recent Labs: Laboratory Last Values WBC 12.5 Th/cmm (4.8-10.8) H 03/13/18 06:30 RBC 4.13 Mil/cmm (3.80-5.20) 03/13/18 06:30 Hgb 13.0 gm/dL (12-16) 03/13/18 06:30 Hct 38.7 % (41.0-60) L 03/13/18 06:30 MCV 93.7 fl (81-100) 03/13/18 06:30 MCH 31.4 pg (27.0-31.0) H 03/13/18 06:30 MCHC Differential 33.5 pg (28.0-36.0) 03/13/18 06:30 RDW 14.5 % (11.5-20.0) 03/13/18 06:30 Plt Count 236 Th/cmm (150-400) 03/13/18 06:30 MPV 8.1 fl 03/13/18 06:30 Add Manual Diff YES 03/11/18 09:02 Neutrophils % 86.3 % (40.0-80.0) H 03/13/18 06:30 Band Neutrophils % 4 % (0-10) 03/09/18 17:55 Lymphocytes % 11.2 % (20.0-50.0) L 03/13/18 06:30 Monocytes % 2.2 % (2.0-10.0) 03/13/18 06:30 Eosinophils % 0.1 % (0.0-5.0) 03/13/18 06:30 Basophils % 0.2 % (0.0-2.0) 03/13/18 06:30 Neutrophils (Manual) 55 % (40-80) 03/11/18 09:02 Lymphocytes 39 % (20-50) 03/11/18 09:02 Monocytes 6 % (2-10) 03/11/18 09:02 Platelet Estimate DECREASED PLATELETS (NORMAL) 03/11/18 09:02 Sodium 137 mEq/L (136-145) 03/13/18 06:30 Potassium 4.2 mEq/L (3.5-5.1) 03/13/18 06:30 Chloride 98 mEq/L (98-107) 03/13/18 06:30 Carbon Dioxide 31.0 mEq/L (21.0-31.0) 03/13/18 06:30 Anion Gap 12.2 (7.0-16.0) 03/13/18 06:30 BUN 17 mg/dL (7-25) 03/13/18 06:30 Creatinine 0.5 mg/dL (0.6-1.2) L 03/13/18 06:30 Est GFR ( Amer) TNP 03/13/18 06:30 Est GFR (Non-Af Amer) TNP 03/13/18 06:30 BUN/Creatinine Ratio 34.0 03/13/18 06:30 Glucose 136 mg/dL (70-105) H 03/13/18 06:30 Whole Bld Lactic Acid 1.86 mmol/L (0.60-1.99) 03/09/18 17:55 Calcium 9.7 mg/dL (8.6-10.3) 03/13/18 06:30 Phosphorus 2.1 mg/dL (2.5-5.0) L 03/09/18 17:55 Magnesium 2.1 mg/dL (1.9-2.7) 03/13/18 06:30 Total Bilirubin 0.3 mg/dL (0.3-1.0) 03/13/18 06:30 AST 10 U/L (13-39) L 03/13/18 06:30 ALT 11 U/L (7-52) 03/13/18 06:30 Alkaline Phosphatase 66 U/L (34-104) 03/13/18 06:30 Troponin I 0.03 ng/mL (0.01-0.05) 03/10/18 17:00 B-Natriuretic Peptide 23.0 pg/mL (5.0-100.0) 03/09/18 17:55 Total Protein 5.7 gm/dL (6.0-8.3) L 03/13/18 06:30 Albumin 3.4 gm/dL (3.7-5.3) L 03/13/18 06:30 Globulin 2.3 gm/dL 03/13/18 06:30 Albumin/Globulin Ratio 1.5 (1.0-1.8) 03/13/18 06:30 - Physical Exam Vitals and I&O: Vital Signs Temp 97.5 F 03/13/18 11:36 Pulse 88 03/13/18 11:36 Resp 19 03/13/18 11:36 BP 151/107 03/13/18 11:36 Pulse Ox 96 03/13/18 11:36 Intake & Output 03/12/18 03/13/18 03/13/18 18:59 06:59 18:59 Intake Total 1800 600 Balance 1800 600 Weight (lbs) 97.069 kg 103.419 kg Intake: Oral 1800 600 Other: # Voids 4 4 # Bowel Movements 0 Weight Source Bedscale Bedscale Active Medications: Current Medications Acetaminophen (Tylenol) 650 mg PO Q6H PRN PRN Reason: mild pain Stop: 05/09/18 01:48 Last Admin: 03/13/18 04:39 Dose: 650 mg Acetylcysteine (Mucomyst 10%) 3 ml HHN Q8HRT [facility] Stop: 05/10/18 12:59 Last Admin: 03/13/18 06:57 Dose: 3 ml Albuterol/Ipratropium (Duoneb Neb) 3 ml HHN Q2HRT PRN PRN Reason: Wheezing Stop: 05/08/18 23:32 Last Admin: 03/13/18 02:27 Dose: 3 ml Albuterol/Ipratropium (Duoneb Neb) 3 ml HHN [id number] [facility] Stop: 05/10/18 14:59 Last Admin: 03/13/18 11:13 Dose: 3 ml Baclofen (Lioresal) 10 mg PO HS [facility] Stop: 05/09/18 20:59 Last Admin: 03/12/18 20:09 Dose: 10 mg Benazepril HCl (Lotensin) 5 mg PO DAILY [facility] Stop: 05/09/18 08:59 Last Admin: 03/13/18 08:16 Dose: 5 mg Carvedilol (Coreg) 12.5 mg PO BIDWM [facility] Stop: 05/11/18 10:29 Last Admin: 03/13/18 08:15 Dose: 12.5 mg Celecoxib (Celebrex) 100 mg PO BID [facility] Stop: 05/09/18 08:59 Last Admin: 03/13/18 08:17 Dose: 100 mg Escitalopram Oxalate (Lexapro) 5 mg PO HS [facility]; Protocol Stop: 05/10/18 20:59 Last Admin: 03/12/18 20:09 Dose: 5 mg Furosemide (Lasix) 40 mg PO DAILY [facility] Stop: 05/11/18 10:14 Last Admin: 03/13/18 08:15 Dose: 40 mg Gabapentin (Neurontin) 300 mg PO TID [facility] Stop: 05/09/18 08:59 Last Admin: 03/13/18 08:16 Dose: 300 mg Guaifenesin (Mucinex) 600 mg PO Q12HR [facility] Stop: 05/11/18 10:14 Last Admin: 03/13/18 08:16 Dose: 600 mg Levofloxacin (Levaquin Pb) 500 mg in 100 mls @ 100 mls/hr IV Q24HR [facility] Stop: 05/08/18 21:29 Last Admin: 03/12/18 21:53 Dose: 100 mls/hr Loratadine (Claritin) 10 mg PO DAILY [facility] Stop: 05/09/18 08:59 Last Admin: 03/13/18 08:17 Dose: 10 mg Methylprednisolone Sodium Succinate (Solu-Medrol) 40 mg IV Q8H [facility] Stop: 05/09/18 00:00 Last Admin: 03/13/18 08:14 Dose: 40 mg Nitroglycerin (Nitrostat) 0.4 mg SL Q5MIN PRN PRN Reason: Chest Pain Stop: 05/08/18 23:29 Oxycodone/Acetaminophen (Percocet 5/325mg Oral Tab) 1 tab PO Q6H PRN PRN Reason: severe pain Stop: 05/09/18 07:59 Last Admin: 03/13/18 11:55 Dose: 1 tab Potassium Chloride (Klor-Con) 10 meq PO DAILY [facility] Stop: 05/11/18 10:14 Last Admin: 03/13/18 08:17 Dose: 10 meq Senna (Senna) 8.6 mg PO HS [facility] Stop: 05/09/18 20:59 Last Admin: 03/12/18 20:21 Dose: 8.6 mg Sodium Phosphate (Fleet Enema) 135 ml RC Q2D PRN PRN Reason: Constipation Stop: 05/08/18 23:29 Last Admin: 03/10/18 03:05 Dose: 135 ml General: no acute distress, well developed, well nourished HEENT: atraumatic, normocephalic, PERRLA, EOMI, moist mucous membrane Neck: supple, no thyromegaly Cardiovascular: S1S2, regular Lungs: clear to auscultation bilaterally, clear to percussion Abdomen: soft, no tender, no distended Extremities: no cyanosis, no clubbing, no edema Neurological: awake, alert Skin: intact Infectious Disease Assmt/Plan - Assessment Assessment: 1. Leukocytosis. Suspect sepsis. 2. Pneumonia. 3. Dementia. 4. Diabetes mellitus type 2. 5. Hypertension. 6. Obesity. 7. Dementia mellitus type II 8. Rheumatoid arthritis. 9. History of CVA. - Plan Plan: Continue levaquin, Depending on the culture report will define final antibiotic therapy. Nutritional Asmnt/Malnutr-PDOC - Dietary Evaluation Malnutrition Findings (Please click <Entered> for more info): Nutritional Asmnt/Malnutrition Start: 03/12/18 14: 44 Text: Status: Complete Freq: Protocol: Document 03/12/18 14:44 ONDINA (Rec: 03/12/18 15:05 ONDINA [facility]) Nutritional Asmnt/Malnutrition Patient General Information Nutritional Screening Moderate Risk Diagnosis ALOC, pneumonia Pertinent Medical Hx/Surgical Hx HTN, DM, asthma/COPD, PUD/GERD , weakness, chronic pain syndrome, rheumatoid arthritis , cerebral infarction, pneumonia, depression, schizophrenia, DJD, CHF, hperlipidemia Subjective Information Pt sleeping at time of visit. Per nurse notes, pt on O2 nasal cannula and refuses care at times. Nursing noted PO intake: improved to 75% yesterday. Current Diet Order/ Nutrition Support VELMA, low fat Pertinent Medications lexapro, lasix, klor-con, senna, sodium phosphate Pertinent Labs 03/11: Cl 96, Cr 0.4, glucose 180, Alb 3.1, K 4.1 03/09: Cl 100, Cr 0.6, glucose 161, Alb 3.8, k 3.4 Nutritional Hx/Data Height 1.73 m Height (Calculated Centimeters) 172.7 Current Weight (lbs) 97.069 kg Weight (Calculated Kilograms) 97.1 Weight (Calculated Grams) 61129.8 [place] Body Weight 140 lb Body Mass Index (BMI) 32.5 Weight Status Obese GI Symptoms GI Symptoms None Last BM 03/11 x 2 Difficult in: None Food Allergies No Skin Integrity/Comment: intact, leah 15 Current %PO Good (75-100%) Estimated Nutritional Goals BEE in Kcals: Adj wt of IBW Calories/Kcals/Kg 25-30 (based on adj wt 72 kg) Kcals Calculated 8762-8183 Protein: Adj wt of IBW Protein g/k.0-1.2 Protein Calculated 72 -84g Fluid: ml 7780-8683 (1 ml/kcal) Nutritional Problem 1. Problem Problem Altered nutrition related lab value Etiology endocrine dysfunction, hyperglycemia Signs/Symptoms: glucose 161-180 Malnutrition Alert Is there a minimum of two criteria No selected? Query Text:Check all the applicable criteria. A minimum of two criteria are recommended for diagnosis of either severe or non-severe malnutrition. Malnutrition Related to Morbid Obesity Malnutrition related to morbid obesity No Intervention/Recommendation Comments 1. Recommend to add CCHO 60 gm diet d/t elevated blood glucose labs 2. Continue with VELMA, low fat diet as ordered 3. Monitor PO intake, wt, labs and skin integrity 4. F/U as moderate risk in 3-5 days, 03/15-03/17, PO check Expected Outcomes/Goals Expected Outcomes/Goals 1. PO intake to meet at least 75% of all meals 2. Wt stability, skin to remain intact, and nutrition related labs to approach normal limits Reviewed by Naila Bustillos RD
[2018-03-13] MEDS: Escitalopram Oxalate 5 mg Tab PO SCH (21:31)
[2018-03-13] MEDS: Levofloxacin 500mg/100mL 500 MG/100 ML BAG IV SCH (21:56)
--- NOTE | 2018-03-14 00:38 | Progress Notes ---
DATE: 03/13/[address] Crowder. Case was discussed with staff of the patient, reviewed records. The patient continues to be depressed, but she was feeding herself. She seems to be in a better mood. She has been depressed most of her life with poor motivation and energy, overwhelmed. She denies any suicidal ideation. No homicidal ideation, no paranoia. She was started on Lexapro with no side effects and 5 mg a day and that was 2 days ago, so maybe the dose can be increased later, if no side effects. Dr. Crowder will follow up with her. Thank you very much for allowing me to participate in the care of this most interesting lady. JOB# [id number]
[2018-03-14] MEDS: methylPREDNISolone SS 40 mg Vial IV SCH ×3 (00:42→20:48)
[2018-03-14] MEDS: APAP/Oxycodone 5/325mg Tab PO PRN ×3 (01:17→17:47)
[2018-03-14] MEDS: Albuterol/Ipratropium Neb 3 ML AERS HHN PRN ×2 (03:40→22:02)
[2018-03-14] MEDS: Acetylcysteine 10% 10 ML VIAL HHN SCH ×3 (08:30→22:02)
[2018-03-14] MEDS: Albuterol/Ipratropium Neb 3 ML AERS HHN SCH ×4 (08:30→18:43)
[2018-03-14] MEDS: Multivitamin w/ Minerals Tab PO SCH (08:58)
[2018-03-14] MEDS: Potassium Chloride 10 mEq ER Tab PO SCH (08:58)
--- NOTE | 2018-03-14 12:23 | Infectious Disease Prog Note ---
Infectious Disease Subjective - Review of Systems Service Date: 03/14/18 Subjective: There is no new change, no fever. Infectious Disease Objective - Results Result Diagrams: 03/13/18 06:30 03/13/18 06:30 Recent Labs: Laboratory Last Values WBC 12.5 Th/cmm (4.8-10.8) H 03/13/18 06:30 RBC 4.13 Mil/cmm (3.80-5.20) 03/13/18 06:30 Hgb 13.0 gm/dL (12-16) 03/13/18 06:30 Hct 38.7 % (41.0-60) L 03/13/18 06:30 MCV 93.7 fl (81-100) 03/13/18 06:30 MCH 31.4 pg (27.0-31.0) H 03/13/18 06:30 MCHC Differential 33.5 pg (28.0-36.0) 03/13/18 06:30 RDW 14.5 % (11.5-20.0) 03/13/18 06:30 Plt Count 236 Th/cmm (150-400) 03/13/18 06:30 MPV 8.1 fl 03/13/18 06:30 Add Manual Diff YES 03/11/18 09:02 Neutrophils % 86.3 % (40.0-80.0) H 03/13/18 06:30 Band Neutrophils % 4 % (0-10) 03/09/18 17:55 Lymphocytes % 11.2 % (20.0-50.0) L 03/13/18 06:30 Monocytes % 2.2 % (2.0-10.0) 03/13/18 06:30 Eosinophils % 0.1 % (0.0-5.0) 03/13/18 06:30 Basophils % 0.2 % (0.0-2.0) 03/13/18 06:30 Neutrophils (Manual) 55 % (40-80) 03/11/18 09:02 Lymphocytes 39 % (20-50) 03/11/18 09:02 Monocytes 6 % (2-10) 03/11/18 09:02 Platelet Estimate DECREASED PLATELETS (NORMAL) 03/11/18 09:02 Sodium 137 mEq/L (136-145) 03/13/18 06:30 Potassium 4.2 mEq/L (3.5-5.1) 03/13/18 06:30 Chloride 98 mEq/L (98-107) 03/13/18 06:30 Carbon Dioxide 31.0 mEq/L (21.0-31.0) 03/13/18 06:30 Anion Gap 12.2 (7.0-16.0) 03/13/18 06:30 BUN 17 mg/dL (7-25) 03/13/18 06:30 Creatinine 0.5 mg/dL (0.6-1.2) L 03/13/18 06:30 Est GFR ( Amer) TNP 03/13/18 06:30 Est GFR (Non-Af Amer) TNP 03/13/18 06:30 BUN/Creatinine Ratio 34.0 03/13/18 06:30 Glucose 136 mg/dL (70-105) H 03/13/18 06:30 Whole Bld Lactic Acid 1.86 mmol/L (0.60-1.99) 03/09/18 17:55 Calcium 9.7 mg/dL (8.6-10.3) 03/13/18 06:30 Phosphorus 2.1 mg/dL (2.5-5.0) L 03/09/18 17:55 Magnesium 2.1 mg/dL (1.9-2.7) 03/13/18 06:30 Total Bilirubin 0.3 mg/dL (0.3-1.0) 03/13/18 06:30 AST 10 U/L (13-39) L 03/13/18 06:30 ALT 11 U/L (7-52) 03/13/18 06:30 Alkaline Phosphatase 66 U/L (34-104) 03/13/18 06:30 Troponin I 0.03 ng/mL (0.01-0.05) 03/10/18 17:00 B-Natriuretic Peptide 23.0 pg/mL (5.0-100.0) 03/09/18 17:55 Total Protein 5.7 gm/dL (6.0-8.3) L 03/13/18 06:30 Albumin 3.4 gm/dL (3.7-5.3) L 03/13/18 06:30 Globulin 2.3 gm/dL 03/13/18 06:30 Albumin/Globulin Ratio 1.5 (1.0-1.8) 03/13/18 06:30 - Physical Exam Vitals and I&O: Vital Signs Temp 98.1 F 03/14/18 11:29 Pulse 85 03/14/18 11:44 Resp 18 03/14/18 11:44 BP 124/78 03/14/18 11:29 Pulse Ox 96 03/14/18 11:44 Intake & Output 03/13/18 03/14/18 03/14/18 18:59 06:59 18:59 Intake Total 1800 375 Balance 1800 375 Weight (lbs) 103.419 kg 102.058 kg Intake: Oral 1800 375 Other: # Voids 3 2 # Bowel Movements 1 Weight Source Bedscale Bedscale Active Medications: Current Medications Acetaminophen (Tylenol) 650 mg PO Q6H PRN PRN Reason: mild pain Stop: 05/09/18 01:48 Last Admin: 03/13/18 04:39 Dose: 650 mg Acetylcysteine (Mucomyst 10%) 3 ml HHN Q8HRT [facility] Stop: 05/10/18 12:59 Last Admin: 03/14/18 08:30 Dose: 3 ml Albuterol/Ipratropium (Duoneb Neb) 3 ml HHN Q2HRT PRN PRN Reason: Wheezing Stop: 05/08/18 23:32 Last Admin: 03/14/18 03:40 Dose: 3 ml Albuterol/Ipratropium (Duoneb Neb) 3 ml HHN [id number] [facility] Stop: 05/10/18 14:59 Last Admin: 03/14/18 11:43 Dose: 3 ml Baclofen (Lioresal) 10 mg PO HS [facility] Stop: 05/09/18 20:59 Last Admin: 03/13/18 21:31 Dose: 10 mg Benazepril HCl (Lotensin) 5 mg PO DAILY [facility] Stop: 05/09/18 08:59 Last Admin: 03/14/18 08:59 Dose: 5 mg Carvedilol (Coreg) 12.5 mg PO BIDWM [facility] Stop: 05/11/18 10:29 Last Admin: 03/14/18 08:59 Dose: 12.5 mg Celecoxib (Celebrex) 100 mg PO BID [facility] Stop: 05/09/18 08:59 Last Admin: 03/14/18 08:59 Dose: 100 mg Escitalopram Oxalate (Lexapro) 5 mg PO HS [facility]; Protocol Stop: 05/10/18 20:59 Last Admin: 03/13/18 21:31 Dose: 5 mg Furosemide (Lasix) 40 mg PO DAILY [facility] Stop: 05/11/18 10:14 Last Admin: 03/14/18 08:58 Dose: 40 mg Gabapentin (Neurontin) 300 mg PO TID [facility] Stop: 05/09/18 08:59 Last Admin: 03/14/18 08:58 Dose: 300 mg Guaifenesin (Mucinex) 600 mg PO Q12HR [facility] Stop: 05/11/18 10:14 Last Admin: 03/14/18 08:58 Dose: 600 mg Levofloxacin (Levaquin Pb) 500 mg in 100 mls @ 100 mls/hr IV Q24HR [facility] Stop: 05/08/18 21:29 Last Admin: 03/13/18 21:56 Dose: 100 mls/hr Loratadine (Claritin) 10 mg PO DAILY [facility] Stop: 05/09/18 08:59 Last Admin: 03/14/18 08:58 Dose: 10 mg Methylprednisolone Sodium Succinate (Solu-Medrol) 30 mg IV Q12HR [facility] Stop: 05/13/18 20:59 Nitroglycerin (Nitrostat) 0.4 mg SL Q5MIN PRN PRN Reason: Chest Pain Stop: 05/08/18 23:29 Oxycodone/Acetaminophen (Percocet 5/325mg Oral Tab) 1 tab PO Q6H PRN PRN Reason: severe pain Stop: 05/09/18 07:59 Last Admin: 03/14/18 09:01 Dose: 1 tab Potassium Chloride (Klor-Con) 10 meq PO DAILY [facility] Stop: 05/11/18 10:14 Last Admin: 03/14/18 08:58 Dose: 10 meq Senna (Senna) 8.6 mg PO HS [facility] Stop: 05/09/18 20:59 Last Admin: 03/13/18 21:31 Dose: 8.6 mg Sodium Phosphate (Fleet Enema) 135 ml RC Q2D PRN PRN Reason: Constipation Stop: 05/08/18 23:29 Last Admin: 03/10/18 03:05 Dose: 135 ml General: no acute distress, well developed, well nourished HEENT: atraumatic, normocephalic, PERRLA Neck: supple, no thyromegaly Cardiovascular: S1S2, regular Lungs: clear to auscultation bilaterally, clear to percussion Abdomen: soft, no tender, no distended Extremities: no cyanosis, no clubbing, no edema Neurological: awake, alert Skin: intact Infectious Disease Assmt/Plan - Assessment Assessment: 1. Leukocytosis. Suspect sepsis. 2. Pneumonia. 3. Dementia. 4. Diabetes mellitus type 2. 5. Hypertension. 6. Obesity. 7. Dementia mellitus type II 8. Rheumatoid arthritis. 9. History of CVA. - Plan Plan: Continue levaquin for 10 days total. Nutritional Asmnt/Malnutr-PDOC - Dietary Evaluation Malnutrition Findings (Please click <Entered> for more info): Nutritional Asmnt/Malnutrition Start: 03/12/18 14: 44 Text: Status: Complete Freq: Protocol: Document 03/12/18 14:44 ONDINA (Rec: 03/12/18 15:05 ONDINA MC) Nutritional Asmnt/Malnutrition Patient General Information Nutritional Screening Moderate Risk Diagnosis ALOC, pneumonia Pertinent Medical Hx/Surgical Hx HTN, DM, asthma/COPD, PUD/GERD , weakness, chronic pain syndrome, rheumatoid arthritis , cerebral infarction, pneumonia, depression, schizophrenia, DJD, CHF, hperlipidemia Subjective Information Pt sleeping at time of visit. Per nurse notes, pt on O2 nasal cannula and refuses care at times. Nursing noted PO intake: improved to 75% yesterday. Current Diet Order/ Nutrition Support VELMA, low fat Pertinent Medications lexapro, lasix, klor-con, senna, sodium phosphate Pertinent Labs 03/11: Cl 96, Cr 0.4, glucose 180, Alb 3.1, K 4.1 03/09: Cl 100, Cr 0.6, glucose 161, Alb 3.8, k 3.4 Nutritional Hx/Data Height 1.73 m Height (Calculated Centimeters) 172.7 Current Weight (lbs) 97.069 kg Weight (Calculated Kilograms) 97.1 Weight (Calculated Grams) 61761.8 [place] Body Weight 140 lb Body Mass Index (BMI) 32.5 Weight Status Obese GI Symptoms GI Symptoms None Last BM 03/11 x 2 Difficult in: None Food Allergies No Skin Integrity/Comment: intact, leah 15 Current %PO Good (75-100%) Estimated Nutritional Goals BEE in Kcals: Adj wt of IBW Calories/Kcals/Kg 25-30 (based on adj wt 72 kg) Kcals Calculated 6837-2230 Protein: Adj wt of IBW Protein g/k.0-1.2 Protein Calculated 72 -84g Fluid: ml 6402-3159 (1 ml/kcal) Nutritional Problem 1. Problem Problem Altered nutrition related lab value Etiology endocrine dysfunction, hyperglycemia Signs/Symptoms: glucose 161-180 Malnutrition Alert Is there a minimum of two criteria No selected? Query Text:Check all the applicable criteria. A minimum of two criteria are recommended for diagnosis of either severe or non-severe malnutrition. Malnutrition Related to Morbid Obesity Malnutrition related to morbid obesity No Intervention/Recommendation Comments 1. Recommend to add CCHO 60 gm diet d/t elevated blood glucose labs 2. Continue with VELMA, low fat diet as ordered 3. Monitor PO intake, wt, labs and skin integrity 4. F/U as moderate risk in 3-5 days, 03/15-03/17, PO check Expected Outcomes/Goals Expected Outcomes/Goals 1. PO intake to meet at least 75% of all meals 2. Wt stability, skin to remain intact, and nutrition related labs to approach normal limits Reviewed by Naila Bustillos RD
--- NOTE | 2018-03-14 12:41 | Progress Notes ---
DATE: 03/13/2018 SUBJECTIVE: The patient seen and examined. The patient is lying in the bed. No new event. The patient has been breathing comfortably. The patient does not provide a meaningful history. Discussed with nursing staff about their concern. PHYSICAL EXAMINATION: VITAL SIGNS: Temperature 97.8, pulse 90, respiratory rate 18, blood pressure 121/76. HEENT: No facial asymmetry. NECK: Supple, no JVD. HEART: Regular. LUNGS: Has expiratory wheezing. ABDOMEN: Soft. No guarding, no rigidity. Bowel sounds present. No palpable mass. EXTREMITIES: No edema. NEUROLOGIC: Alert, awake, follows commands. Decreased power throughout the upper and lower extremity noted. AVAILABLE DIAGNOSTIC DATA: Reviewed. CLINICAL IMPRESSION: 1. Pneumonia. 2. Leukocytosis. 3. Dementia. 4. Diabetes mellitus. 5. Hypertension. 6. Degenerative joint disease. 7. Obesity. 8. Decline in self-care and mobility. 9. Bronchospasm. PLAN: Continue to provide oxygen, nebulizer treatment, pulmonary toilet, IV antibiotics, General nursing care, symptoms management, monitor blood sugar, blood pressure, General nursing care, follow lab, transferred to Med/Surg floor. Discharge planning to [facility] if the patient is not a candidate for Geropsych. JOB# [id number]
[2018-03-14] MEDS: Levofloxacin 500mg/100mL 500 MG/100 ML BAG IV SCH (20:48)
[2018-03-14] MEDS: Escitalopram Oxalate 5 mg Tab PO SCH (20:49)
--- NOTE | 2018-03-14 23:24 | Progress Notes ---
DATE: 03/14/2018 IDENTIFICATION: An 82-year-old female. SUBJECTIVE: The patient is seen and examined. OBJECTIVE: GENERAL: The patient is lying in the bed. The patient is alert, awake, no new event. VITAL SIGNS: Temperature 98.1, pulse is 86, respiratory rate 18, and blood pressure is 124/78. HEENT: No facial asymmetry. NECK: Supple, no JVD. HEART: Regular. CHEST AND LUNGS: Equal in expansion. Mild expiratory wheezing. ABDOMEN: Soft. No guarding or rigidity. Bowel sounds present. No palpable mass. EXTREMITIES: A +1 edema, no calf tenderness noted. CLINICAL IMPRESSION: 1. Left lower lobe pneumonia. 2. Bronchospasm improvement. 3. Hypertension. 4. Degenerative joint disease. 5. Dementia. 6. Psychotic disorder. 7. History of congestive heart failure. PLAN: 1. Cut down the IV steroids. 2. Oxygen. 3. Nebulizer treatment. 4. Continue to follow Psych and Infectious Disease recommendation. 5. General nursing care. 6. MedSurg status. 7. Discussed planning to psych facility once the patient is accepted to the psych. JOB# [id number]
[2018-03-15] MEDS: Albuterol/Ipratropium Neb 3 ML AERS HHN SCH ×4 (06:46→18:43)
[2018-03-15] MEDS: Acetylcysteine 10% 10 ML VIAL HHN SCH ×3 (06:46→23:04)
[2018-03-15] MEDS: Potassium Chloride 10 mEq ER Tab PO SCH (08:31)
[2018-03-15] MEDS: Multivitamin w/ Minerals Tab PO SCH (08:32)
[2018-03-15] MEDS: methylPREDNISolone SS 40 mg Vial IV SCH ×2 (08:33→21:20)
--- NOTE | 2018-03-15 10:20 | Infectious Disease Prog Note ---
Infectious Disease Subjective - Review of Systems Service Date: 03/15/18 Subjective: There is no new change, no fever. Infectious Disease Objective - Results Result Diagrams: 03/13/18 06:30 03/13/18 06:30 Recent Labs: Laboratory Last Values WBC 12.5 Th/cmm (4.8-10.8) H 03/13/18 06:30 RBC 4.13 Mil/cmm (3.80-5.20) 03/13/18 06:30 Hgb 13.0 gm/dL (12-16) 03/13/18 06:30 Hct 38.7 % (41.0-60) L 03/13/18 06:30 MCV 93.7 fl (81-100) 03/13/18 06:30 MCH 31.4 pg (27.0-31.0) H 03/13/18 06:30 MCHC Differential 33.5 pg (28.0-36.0) 03/13/18 06:30 RDW 14.5 % (11.5-20.0) 03/13/18 06:30 Plt Count 236 Th/cmm (150-400) 03/13/18 06:30 MPV 8.1 fl 03/13/18 06:30 Add Manual Diff YES 03/11/18 09:02 Neutrophils % 86.3 % (40.0-80.0) H 03/13/18 06:30 Band Neutrophils % 4 % (0-10) 03/09/18 17:55 Lymphocytes % 11.2 % (20.0-50.0) L 03/13/18 06:30 Monocytes % 2.2 % (2.0-10.0) 03/13/18 06:30 Eosinophils % 0.1 % (0.0-5.0) 03/13/18 06:30 Basophils % 0.2 % (0.0-2.0) 03/13/18 06:30 Neutrophils (Manual) 55 % (40-80) 03/11/18 09:02 Lymphocytes 39 % (20-50) 03/11/18 09:02 Monocytes 6 % (2-10) 03/11/18 09:02 Platelet Estimate DECREASED PLATELETS (NORMAL) 03/11/18 09:02 Sodium 137 mEq/L (136-145) 03/13/18 06:30 Potassium 4.2 mEq/L (3.5-5.1) 03/13/18 06:30 Chloride 98 mEq/L (98-107) 03/13/18 06:30 Carbon Dioxide 31.0 mEq/L (21.0-31.0) 03/13/18 06:30 Anion Gap 12.2 (7.0-16.0) 03/13/18 06:30 BUN 17 mg/dL (7-25) 03/13/18 06:30 Creatinine 0.5 mg/dL (0.6-1.2) L 03/13/18 06:30 Est GFR ( Amer) TNP 03/13/18 06:30 Est GFR (Non-Af Amer) TNP 03/13/18 06:30 BUN/Creatinine Ratio 34.0 03/13/18 06:30 Glucose 136 mg/dL (70-105) H 03/13/18 06:30 Whole Bld Lactic Acid 1.86 mmol/L (0.60-1.99) 03/09/18 17:55 Calcium 9.7 mg/dL (8.6-10.3) 03/13/18 06:30 Phosphorus 2.1 mg/dL (2.5-5.0) L 03/09/18 17:55 Magnesium 2.1 mg/dL (1.9-2.7) 03/13/18 06:30 Total Bilirubin 0.3 mg/dL (0.3-1.0) 03/13/18 06:30 AST 10 U/L (13-39) L 03/13/18 06:30 ALT 11 U/L (7-52) 03/13/18 06:30 Alkaline Phosphatase 66 U/L (34-104) 03/13/18 06:30 Troponin I 0.03 ng/mL (0.01-0.05) 03/10/18 17:00 B-Natriuretic Peptide 23.0 pg/mL (5.0-100.0) 03/09/18 17:55 Total Protein 5.7 gm/dL (6.0-8.3) L 03/13/18 06:30 Albumin 3.4 gm/dL (3.7-5.3) L 03/13/18 06:30 Globulin 2.3 gm/dL 11/27/18 06:30 Albumin/Globulin Ratio 1.5 (1.0-1.8) 03/13/18 06:30 - Physical Exam Vitals and I&O: Vital Signs Temp 97.6 F 03/15/18 08:15 Pulse 97 03/15/18 08:33 Resp 19 03/15/18 08:15 BP 115/83 03/15/18 08:33 Pulse Ox 96 03/15/18 08:15 Intake & Output 03/14/18 03/15/18 03/15/18 18:59 06:59 18:59 Intake Total 600 350 Balance 600 350 Weight (lbs) 102.058 kg 102.597 kg Intake: Intake, IV Amount 100 Levofloxacin 500mg/100mL 100 500 mg In 100 ml @ 100 mls/hr IV Q24HR [facility] Rx#: [id number] Oral 600 250 Other: # Voids 3 3 # Bowel Movements 0 Weight Source Bedscale Bedscale Active Medications: Current Medications Acetaminophen (Tylenol) 650 mg PO Q6H PRN PRN Reason: mild pain Stop: 05/09/18 01:48 Last Admin: 03/14/18 19:50 Dose: 650 mg Acetylcysteine (Mucomyst 10%) 3 ml HHN Q8HRT [facility] Stop: 05/10/18 12:59 Last Admin: 03/15/18 06:46 Dose: 3 ml Albuterol/Ipratropium (Duoneb Neb) 3 ml HHN Q2HRT PRN PRN Reason: Wheezing Stop: 05/08/18 23:32 Last Admin: 03/14/18 03:40 Dose: 3 ml Albuterol/Ipratropium (Duoneb Neb) 3 ml HHN [id number] [facility] Stop: 05/10/18 14:59 Last Admin: 03/15/18 06:46 Dose: 3 ml Baclofen (Lioresal) 10 mg PO HS [facility] Stop: 05/09/18 20:59 Last Admin: 03/14/18 20:50 Dose: 10 mg Benazepril HCl (Lotensin) 5 mg PO DAILY [facility] Stop: 05/09/18 08:59 Last Admin: 03/15/18 08:31 Dose: 5 mg Carvedilol (Coreg) 12.5 mg PO BIDWM [facility] Stop: 05/11/18 10:29 Last Admin: 03/15/18 08:33 Dose: 12.5 mg Celecoxib (Celebrex) 100 mg PO BID [facility] Stop: 05/09/18 08:59 Last Admin: 03/15/18 08:32 Dose: 100 mg Escitalopram Oxalate (Lexapro) 5 mg PO HS [facility]; Protocol Stop: 05/10/18 20:59 Last Admin: 03/14/18 20:49 Dose: 5 mg Furosemide (Lasix) 40 mg PO DAILY [facility] Stop: 05/11/18 10:14 Last Admin: 03/15/18 08:32 Dose: 40 mg Gabapentin (Neurontin) 300 mg PO TID [facility] Stop: 05/09/18 08:59 Last Admin: 03/15/18 08:33 Dose: 300 mg Guaifenesin (Mucinex) 600 mg PO Q12HR [facility] Stop: 05/11/18 10:14 Last Admin: 03/15/18 08:31 Dose: 600 mg Levofloxacin (Levaquin Pb) 500 mg in 100 mls @ 100 mls/hr IV Q24HR [facility] Stop: 05/08/18 21:29 Last Infusion: 03/14/18 23:28 Dose: Infused Loratadine (Claritin) 10 mg PO DAILY [facility] Stop: 05/09/18 08:59 Last Admin: 03/15/18 08:33 Dose: 10 mg Methylprednisolone Sodium Succinate (Solu-Medrol) 30 mg IV Q12HR [facility] Stop: 05/13/18 20:59 Last Admin: 03/15/18 08:33 Dose: 30 mg Nitroglycerin (Nitrostat) 0.4 mg SL Q5MIN PRN PRN Reason: Chest Pain Stop: 05/08/18 23:29 Oxycodone/Acetaminophen (Percocet 5/325mg Oral Tab) 1 tab PO Q6H PRN PRN Reason: severe pain Stop: 05/09/18 07:59 Last Admin: 03/14/18 17:47 Dose: 1 tab Potassium Chloride (Klor-Con) 10 meq PO DAILY [facility] Stop: 05/11/18 10:14 Last Admin: 03/15/18 08:31 Dose: 10 meq Senna (Senna) 8.6 mg PO HS [facility] Stop: 05/09/18 20:59 Last Admin: 03/14/18 20:49 Dose: 8.6 mg Sodium Phosphate (Fleet Enema) 135 ml RC Q2D PRN PRN Reason: Constipation Stop: 05/08/18 23:29 Last Admin: 03/10/18 03:05 Dose: 135 ml General: no acute distress, well developed, well nourished HEENT: atraumatic, normocephalic, PERRLA, EOMI Neck: supple, no thyromegaly Cardiovascular: S1S2, regular Lungs: clear to auscultation bilaterally, clear to percussion Abdomen: soft, no tender, no distended, no mass Extremities: no cyanosis, no clubbing, no edema Neurological: awake, alert, oriented Skin: intact Infectious Disease Assmt/Plan - Assessment Assessment: 1. Leukocytosis. stable 2. Pneumonia. 3. Dementia. 4. Diabetes mellitus type 2. 5. Hypertension. 6. Obesity. 7. Dementia mellitus type II 8. Rheumatoid arthritis. 9. History of CVA. - Plan Plan: Continue levaquin for 10 days total. Nutritional Asmnt/Malnutr-PDOC - Dietary Evaluation Malnutrition Findings (Please click <Entered> for more info): Nutritional Asmnt/Malnutrition Start: 03/12/18 14: 44 Text: Status: Complete Freq: Protocol: Document 03/12/18 14:44 RENDAVID (Rec: 03/12/18 15:05 ONDINA MC) Nutritional Asmnt/Malnutrition Patient General Information Nutritional Screening Moderate Risk Diagnosis ALOC, pneumonia Pertinent Medical Hx/Surgical Hx HTN, DM, asthma/COPD, PUD/GERD , weakness, chronic pain syndrome, rheumatoid arthritis , cerebral infarction, pneumonia, depression, schizophrenia, DJD, CHF, hperlipidemia Subjective Information Pt sleeping at time of visit. Per nurse notes, pt on O2 nasal cannula and refuses care at times. Nursing noted PO intake: improved to 75% yesterday. Current Diet Order/ Nutrition Support VELMA, low fat Pertinent Medications lexapro, lasix, klor-con, senna, sodium phosphate Pertinent Labs 03/11: Cl 96, Cr 0.4, glucose 180, Alb 3.1, K 4.1 03/09: Cl 100, Cr 0.6, glucose 161, Alb 3.8, k 3.4 Nutritional Hx/Data Height 1.73 m Height (Calculated Centimeters) 172.7 Current Weight (lbs) 97.069 kg Weight (Calculated Kilograms) 97.1 Weight (Calculated Grams) 59388.8 [place] Body Weight 140 lb Body Mass Index (BMI) 32.5 Weight Status Obese GI Symptoms GI Symptoms None Last BM 03/11 x 2 Difficult in: None Food Allergies No Skin Integrity/Comment: intact, leah 15 Current %PO Good (75-100%) Estimated Nutritional Goals BEE in Kcals: Adj wt of IBW Calories/Kcals/Kg 25-30 (based on adj wt 72 kg) Kcals Calculated 5541-2086 Protein: Adj wt of IBW Protein g/k.0-1.2 Protein Calculated 72 -84g Fluid: ml 3868-1206 (1 ml/kcal) Nutritional Problem 1. Problem Problem Altered nutrition related lab value Etiology endocrine dysfunction, hyperglycemia Signs/Symptoms: glucose 161-180 Malnutrition Alert Is there a minimum of two criteria No selected? Query Text:Check all the applicable criteria. A minimum of two criteria are recommended for diagnosis of either severe or non-severe malnutrition. Malnutrition Related to Morbid Obesity Malnutrition related to morbid obesity No Intervention/Recommendation Comments 1. Recommend to add CCHO 60 gm diet d/t elevated blood glucose labs 2. Continue with VELMA, low fat diet as ordered 3. Monitor PO intake, wt, labs and skin integrity 4. F/U as moderate risk in 3-5 days, 03/15-03/17, PO check Expected Outcomes/Goals Expected Outcomes/Goals 1. PO intake to meet at least 75% of all meals 2. Wt stability, skin to remain intact, and nutrition related labs to approach normal limits Reviewed by Naila Bustillos RD
[2018-03-15] MEDS: APAP/Oxycodone 5/325mg Tab PO PRN ×2 (11:18→19:28)
[2018-03-15] MEDS ORDERED: Probiotic Screen MC PRN (13:15)
--- NOTE | 2018-03-15 19:22 | Progress Notes ---
DATE: 03/15/2018 Case was discussed with staff of the patient, reviewed records. The patient seems continues to be depressed, overwhelmed, sleeping better, eating better, continues to have poor motivation, overwhelmed. I do recommend that she is still depressed. She was transferred to [facility]. She will be under Dr. Crowder ____ did a consult on her, which was covering for him Thank you very much for allowing me to participate in the care of this most interesting lady. JOB# [id number]
[2018-03-15] MEDS: Levofloxacin 500mg/100mL 500 MG/100 ML BAG IV SCH (21:21)
[2018-03-15] MEDS: Escitalopram Oxalate 5 mg Tab PO SCH (21:21)
[2018-03-15] MEDS: Albuterol/Ipratropium Neb 3 ML AERS HHN PRN (23:04)
[2018-03-16] MEDS: Fleet Enema 135 mL RC PRN (02:38)
--- NOTE | 2018-03-16 04:31 | Discharge Summary ---
DATE OF DISCHARGE: 03/15/2018 PRINCIPAL DIAGNOSES: 1. Acute respiratory failure. 2. Left lower lobe pneumonia. 3. Bronchospasm. 4. Hypertension. 5. Degenerative joint disease. 6. Psychotic disorder. 7. Lower extremity weakness. 8. Decline in self-care and mobility. 9. Osteoporosis. 10. Diabetes mellitus. BRIEF STATEMENT FOR THE REASON FOR ADMISSION: An 82-year-old resident of longterm, presented to Emergency Room on 03/09/2018 for evaluation of agitation along with difficulty in breathing. The patient was noted to have acute respiratory failure with pneumonia. The patient was admitted to medical floor. Please refer to my H and P for further information. HOSPITAL COURSE: The patient was admitted to telemetry unit. #2 oxygen, nebulizer treatment, IV antibiotics were given. Infectious Disease and a Psych consult was requested. Appropriate home medicine was also reconciled. Cardiac enzymes were negative for acute myocardial infarction. The patient did have a CT scan of the chest, which was done on 03/11/2018, which revealed left lower lobe pneumonia with a small effusion and pleural thickening as well. The patient did have extensive wheezing, which required IV Solu-Medrol along with Mucomyst as well with the help of treatment. The patient started to improve as well. The patient was seen by the psychiatrist and she did recommend that the patient may get benefit with inpatient psychiatric care as well. The patient IV antibiotic was switched to p.o. antibiotic and decision was made that the patient can be transferred. The patient is transferred to [facility] on 03/15/2018 where the patient was followed by the psychiatrist, Dr. Michelle as well as myself. At the time of discharge, all of her medications are reconciled. JOB# [id number]
[2018-03-16] MEDS: APAP/Oxycodone 5/325mg Tab PO PRN (04:51)
[2018-03-16] MEDS: Albuterol/Ipratropium Neb 3 ML AERS HHN SCH ×2 (07:14→10:59)
[2018-03-16] MEDS: Acetylcysteine 10% 10 ML VIAL HHN SCH (07:15)
--- NOTE | 2018-03-16 08:52 | Progress Notes ---
DATE: 03/15/2018 PATIENT'S IDENTIFICATION: An 82-year-old female. SUBJECTIVE: The patient is seen and examined. The patient is lying in the bed. The patient denies any chest pain, shortness of breath, palpitation, has a dry to productive cough. The patient denies any fever or chills. Psych input has been noted. OBJECTIVE: VITAL SIGNS: On exam, temperature 96.3, pulse 62, respiratory rate 18, blood pressure 117/84. HEENT: No facial asymmetry. NECK: Supple. No JVD. HEART: Regular. CHEST AND LUNGS: Equal in expansion, mild expiratory wheezing. ABDOMEN: Soft. No guarding. No rigidity. Liver and spleen are palpable. No palpable mass. EXTREMITIES: No edema. NEUROLOGIC: Alert, awake, follows command. MEDICATION ON ADMISSION: Records reviewed. CLINICAL IMPRESSIONS: 1. Left lower lobe pneumonia. 2. Bronchospasm, improved. 3. Hypertension. 4. Psychiatric disorder. 5. Degenerative joint disease. 6. Obesity. 7. Osteoporosis. 8. High risk for fall. PLAN: The patient has been seen by psychiatrist and recommended to go to Geropsych Unit. The patient will be discharged to Geropsych Unit today. The patient will be followed by myself and the psychiatrist. JOB# [id number]
[2018-03-16] MEDS ORDERED: Lactobacillus Rhamnosus GG 15 Billion CFU CAP.SPRINK PO SCH (09:00)
[2018-03-16] MEDS: Multivitamin w/ Minerals Tab PO SCH (09:47)
[2018-03-16] MEDS: Potassium Chloride 10 mEq ER Tab PO SCH (09:49)
[2018-03-16] MEDS: methylPREDNISolone SS 40 mg Vial IV SCH (10:20)
--- NOTE | 2018-03-16 11:41 | Infectious Disease Prog Note ---
Infectious Disease Subjective - Review of Systems Service Date: 03/16/18 Subjective: There is no new change, no fever. Infectious Disease Objective - Results Result Diagrams: 03/13/18 06:30 03/13/18 06:30 Recent Labs: Laboratory Last Values WBC 12.5 Th/cmm (4.8-10.8) H 03/13/18 06:30 RBC 4.13 Mil/cmm (3.80-5.20) 03/13/18 06:30 Hgb 13.0 gm/dL (12-16) 03/13/18 06:30 Hct 38.7 % (41.0-60) L 03/13/18 06:30 MCV 93.7 fl (81-100) 03/13/18 06:30 MCH 31.4 pg (27.0-31.0) H 03/13/18 06:30 MCHC Differential 33.5 pg (28.0-36.0) 03/13/18 06:30 RDW 14.5 % (11.5-20.0) 03/13/18 06:30 Plt Count 236 Th/cmm (150-400) 03/13/18 06:30 MPV 8.1 fl 03/13/18 06:30 Add Manual Diff YES 03/11/18 09:02 Neutrophils % 86.3 % (40.0-80.0) H 03/13/18 06:30 Band Neutrophils % 4 % (0-10) 03/09/18 17:55 Lymphocytes % 11.2 % (20.0-50.0) L 03/13/18 06:30 Monocytes % 2.2 % (2.0-10.0) 03/13/18 06:30 Eosinophils % 0.1 % (0.0-5.0) 03/13/18 06:30 Basophils % 0.2 % (0.0-2.0) 03/13/18 06:30 Neutrophils (Manual) 55 % (40-80) 03/11/18 09:02 Lymphocytes 39 % (20-50) 03/11/18 09:02 Monocytes 6 % (2-10) 03/11/18 09:02 Platelet Estimate DECREASED PLATELETS (NORMAL) 03/11/18 09:02 Sodium 137 mEq/L (136-145) 03/13/18 06:30 Potassium 4.2 mEq/L (3.5-5.1) 03/13/18 06:30 Chloride 98 mEq/L (98-107) 03/13/18 06:30 Carbon Dioxide 31.0 mEq/L (21.0-31.0) 03/13/18 06:30 Anion Gap 12.2 (7.0-16.0) 03/13/18 06:30 BUN 17 mg/dL (7-25) 03/13/18 06:30 Creatinine 0.5 mg/dL (0.6-1.2) L 03/13/18 06:30 Est GFR ( Amer) TNP 03/13/18 06:30 Est GFR (Non-Af Amer) TNP 03/13/18 06:30 BUN/Creatinine Ratio 34.0 03/13/18 06:30 Glucose 136 mg/dL (70-105) H 03/13/18 06:30 Whole Bld Lactic Acid 1.86 mmol/L (0.60-1.99) 03/09/18 17:55 Calcium 9.7 mg/dL (8.6-10.3) 03/13/18 06:30 Phosphorus 2.1 mg/dL (2.5-5.0) L 03/09/18 17:55 Magnesium 2.1 mg/dL (1.9-2.7) 03/13/18 06:30 Total Bilirubin 0.3 mg/dL (0.3-1.0) 03/13/18 06:30 AST 10 U/L (13-39) L 03/13/18 06:30 ALT 11 U/L (7-52) 03/13/18 06:30 Alkaline Phosphatase 66 U/L (34-104) 03/13/18 06:30 Troponin I 0.03 ng/mL (0.01-0.05) 03/10/18 17:00 B-Natriuretic Peptide 23.0 pg/mL (5.0-100.0) 03/09/18 17:55 Total Protein 5.7 gm/dL (6.0-8.3) L 03/13/18 06:30 Albumin 3.4 gm/dL (3.7-5.3) L 03/13/18 06:30 Globulin 2.3 gm/dL 11/27/18 06:30 Albumin/Globulin Ratio 1.5 (1.0-1.8) 03/13/18 06:30 - Physical Exam Vitals and I&O: Vital Signs Temp 96.2 F 03/16/18 08:37 Pulse 91 03/16/18 11:00 Resp 18 03/16/18 11:00 BP 139/80 03/16/18 10:14 Pulse Ox 95 03/16/18 11:00 Intake & Output 03/15/18 03/16/18 03/16/18 18:59 06:59 18:59 Intake Total 800 820 400 Balance 800 820 400 Weight (lbs) 104.326 kg 104.355 kg 104.326 kg Intake: Intake, IV Amount 100 Levofloxacin 500mg/100mL 100 500 mg In 100 ml @ 100 mls/hr IV Q24HR [facility] Rx#: [id number] Oral 800 720 400 Other: # Voids 3 4 2 # Bowel Movements 0 3 0 Stool Characteristics Formed Weight Source Bedscale Bedscale Bedscale Active Medications: Current Medications Acetaminophen (Tylenol) 650 mg PO Q6H PRN PRN Reason: mild pain Stop: 05/09/18 01:48 Last Admin: 03/14/18 19:50 Dose: 650 mg Acetylcysteine (Mucomyst 10%) 3 ml HHN Q8HRT [facility] Stop: 05/10/18 12:59 Last Admin: 03/16/18 07:15 Dose: 3 ml Albuterol/Ipratropium (Duoneb Neb) 3 ml HHN Q2HRT PRN PRN Reason: Wheezing Stop: 05/08/18 23:32 Last Admin: 03/15/18 23:04 Dose: 3 ml Albuterol/Ipratropium (Duoneb Neb) 3 ml HHN [id number] [facility] Stop: 05/10/18 14:59 Last Admin: 03/16/18 10:59 Dose: 3 ml Baclofen (Lioresal) 10 mg PO HS [facility] Stop: 05/09/18 20:59 Last Admin: 03/15/18 21:21 Dose: 10 mg Benazepril HCl (Lotensin) 5 mg PO DAILY [facility] Stop: 05/09/18 08:59 Last Admin: 03/16/18 09:46 Dose: 5 mg Carvedilol (Coreg) 12.5 mg PO BIDWM [facility] Stop: 05/11/18 10:29 Last Admin: 03/16/18 10:14 Dose: 12.5 mg Celecoxib (Celebrex) 100 mg PO BID [facility] Stop: 05/09/18 08:59 Last Admin: 03/16/18 09:48 Dose: 100 mg Escitalopram Oxalate (Lexapro) 5 mg PO HS [facility]; Protocol Stop: 05/10/18 20:59 Last Admin: 03/15/18 21:21 Dose: 5 mg Furosemide (Lasix) 40 mg PO DAILY [facility] Stop: 05/11/18 10:14 Last Admin: 03/16/18 09:48 Dose: 40 mg Gabapentin (Neurontin) 300 mg PO TID [facility] Stop: 05/09/18 08:59 Last Admin: 03/16/18 09:49 Dose: 300 mg Guaifenesin (Mucinex) 600 mg PO Q12HR [facility] Stop: 05/11/18 10:14 Last Admin: 03/16/18 09:45 Dose: 600 mg Levofloxacin (Levaquin Pb) 500 mg in 100 mls @ 100 mls/hr IV Q24HR [facility] Stop: 05/08/18 21:29 Last Infusion: 03/15/18 23:24 Dose: Infused Lactobacillus Rhamnosus (Culturelle 15b) 1 each PO DAILY [facility] Stop: 05/15/18 08:59 Last Admin: 03/16/18 09:48 Dose: 1 each Loratadine (Claritin) 10 mg PO DAILY [facility] Stop: 05/09/18 08:59 Last Admin: 03/16/18 09:45 Dose: 10 mg Methylprednisolone Sodium Succinate (Solu-Medrol) 30 mg IV Q12HR [facility] Stop: 05/13/18 20:59 Last Admin: 03/16/18 10:20 Dose: Not Given Miscellaneous (Probiotic Screen) 1 ea [facility] PRN PRN PRN Reason: PROTOCOL Stop: 05/14/18 13:14 Nitroglycerin (Nitrostat) 0.4 mg SL Q5MIN PRN PRN Reason: Chest Pain Stop: 05/08/18 23:29 Oxycodone/Acetaminophen (Percocet 5/325mg Oral Tab) 1 tab PO Q6H PRN PRN Reason: severe pain Stop: 05/09/18 07:59 Last Admin: 03/16/18 04:51 Dose: 1 tab Potassium Chloride (Klor-Con) 10 meq PO DAILY [facility] Stop: 05/11/18 10:14 Last Admin: 03/16/18 09:49 Dose: 10 meq Senna (Senna) 8.6 mg PO HS [facility] Stop: 05/09/18 20:59 Last Admin: 03/15/18 21:21 Dose: 8.6 mg Sodium Phosphate (Fleet Enema) 135 ml RC Q2D PRN PRN Reason: Constipation Stop: 05/08/18 23:29 Last Admin: 03/16/18 02:38 Dose: 135 ml General: no acute distress, well developed, well nourished HEENT: atraumatic, normocephalic, PERRLA, EOMI Neck: supple, no thyromegaly Cardiovascular: S1S2, regular Lungs: clear to auscultation bilaterally, clear to percussion Abdomen: soft, no tender, no distended Extremities: no cyanosis, no clubbing, no edema Neurological: awake, alert, oriented Skin: intact Infectious Disease Assmt/Plan - Assessment Assessment: 1. Leukocytosis. stable 2. Pneumonia. 3. Dementia. 4. Diabetes mellitus type 2. 5. Hypertension. 6. Obesity. 7. Dementia mellitus type II 8. Rheumatoid arthritis. 9. History of CVA. - Plan Plan: Continue Levaquin for 10 days total. Nutritional Asmnt/Malnutr-PDOC - Dietary Evaluation Malnutrition Findings (Please click <Entered> for more info): Nutritional Asmnt/Malnutrition Start: 03/12/18 14: 44 Text: Status: Complete Freq: Protocol: Document 03/12/18 14:44 ONDINA (Rec: 03/12/18 15:05 ONDINA MC) Nutritional Asmnt/Malnutrition Patient General Information Nutritional Screening Moderate Risk Diagnosis ALOC, pneumonia Pertinent Medical Hx/Surgical Hx HTN, DM, asthma/COPD, PUD/GERD , weakness, chronic pain syndrome, rheumatoid arthritis , cerebral infarction, pneumonia, depression, schizophrenia, DJD, CHF, hperlipidemia Subjective Information Pt sleeping at time of visit. Per nurse notes, pt on O2 nasal cannula and refuses care at times. Nursing noted PO intake: improved to 75% yesterday. Current Diet Order/ Nutrition Support VELMA, low fat Pertinent Medications lexapro, lasix, klor-con, senna, sodium phosphate Pertinent Labs 03/11: Cl 96, Cr 0.4, glucose 180, Alb 3.1, K 4.1 03/09: Cl 100, Cr 0.6, glucose 161, Alb 3.8, k 3.4 Nutritional Hx/Data Height 1.73 m Height (Calculated Centimeters) 172.7 Current Weight (lbs) 97.069 kg Weight (Calculated Kilograms) 97.1 Weight (Calculated Grams) 43696.8 [place] Body Weight 140 lb Body Mass Index (BMI) 32.5 Weight Status Obese GI Symptoms GI Symptoms None Last BM 03/11 x 2 Difficult in: None Food Allergies No Skin Integrity/Comment: intact, leah 15 Current %PO Good (75-100%) Estimated Nutritional Goals BEE in Kcals: Adj wt of IBW Calories/Kcals/Kg 25-30 (based on adj wt 72 kg) Kcals Calculated 1073-1882 Protein: Adj wt of IBW Protein g/k.0-1.2 Protein Calculated 72 -84g Fluid: ml 9780-9085 (1 ml/kcal) Nutritional Problem 1. Problem Problem Altered nutrition related lab value Etiology endocrine dysfunction, hyperglycemia Signs/Symptoms: glucose 161-180 Malnutrition Alert Is there a minimum of two criteria No selected? Query Text:Check all the applicable criteria. A minimum of two criteria are recommended for diagnosis of either severe or non-severe malnutrition. Malnutrition Related to Morbid Obesity Malnutrition related to morbid obesity No Intervention/Recommendation Comments 1. Recommend to add CCHO 60 gm diet d/t elevated blood glucose labs 2. Continue with VELMA, low fat diet as ordered 3. Monitor PO intake, wt, labs and skin integrity 4. F/U as moderate risk in 3-5 days, 03/15-03/17, PO check Expected Outcomes/Goals Expected Outcomes/Goals 1. PO intake to meet at least 75% of all meals 2. Wt stability, skin to remain intact, and nutrition related labs to approach normal limits Reviewed by Naila Bustillos RD
--- NOTE | 2018-03-20 08:41 | Psychiatric Evaluation ---
DATE OF SERVICE: PSYCHIATRIC INITIAL EVALUATION AND MENTAL STATUS EXAM PATIENT'S AGE: 82. SEX: Female. PHYSICIAN: Dr. Crowder. CHIEF COMPLAINT: "I have been depressed." HISTORY OF PRESENT ILLNESS: The patient is an 82-year-old female who was in Med-Surg unit for treatment and while she was there, she said that she has been depressed most of the time in her life and that she has been feeling severely depressed. The patient was started on Lexapro there. When the patient was medically stable, the patient was discharged from a chair and transferred to the psych unit to continue her treatment. The patient is still in a depressed mood and needs lots of help. PAST PSYCHIATRIC HISTORY: The patient has history of depression and questionable bipolar. PAST MEDICAL HISTORY: The patient has degenerative joint disease as well as gastroesophageal reflux disease. She also has hyperlipidemia, hypertension, peripheral neuropathy and congestive heart failure. SOCIAL HISTORY: The patient lives in a [facility] and care facility. The patient said that she has 6 children, 4 daughters and 2 sons. No known alcohol or drug use. ALLERGIES: No known allergies. MENTAL STATUS EXAM: The patient appears her stated age. Anxious. Overweight. Thought processes mainly goal directed. The patient denies any hallucinations or delusions. The patient also denies any suicidal or homicidal ideations. The patient is alert and oriented to the situation and person. Intact immediate, recent and remote memories. Fair insight and judgment. ASSESSMENT: PRIMARY DIAGNOSES: Major depression, severe, recurrent, with psychotic features. Rule out bipolar disorder, depressed episode. TREATMENT PLAN: We will monitor her behavior closely. We will work on her ineffective coping and continue to follow up. ESTIMATED LENGTH OF STAY: 5-7 days. THE PATIENT'S STRENGTHS AND WEAKNESSES: The patient's strength is not clear at this time. Weakness is fair ineffective coping. PLAN: We will monitor behavior and condition closely. We will work on her discharge plans. [facility]# [id number]
== END 2018-03-16 13:01 | DRG 193 ==
LOC: ER 17:19 → TELE 19:58 → MSI 03-11 13:03
PROVIDERS: ADMIT Internal Medicine; ATTEND Internal Medicine
DX: J18.1 Lobar pneumonia, unspecified organism (principal); J96.01 Acute respiratory failure with hypoxia; F33.2 Major depressive disorder, recurrent severe without psychotic features; I50.9 Heart failure, unspecified; I25.10 Atherosclerotic heart disease of native coronary artery without angina pectoris; F03.90 Unspecified dementia, unspecified severity, without behavioral disturbance, psychotic disturbance, mood disturbance, and anxiety; J44.9 Chronic obstructive pulmonary disease, unspecified; K21.9 Gastro-esophageal reflux disease without esophagitis; G89.4 Chronic pain syndrome; M06.9 Rheumatoid arthritis, unspecified; E66.9 Obesity, unspecified; E78.5 Hyperlipidemia, unspecified; E11.42 Type 2 diabetes mellitus with diabetic polyneuropathy; I11.0 Hypertensive heart disease with heart failure; D69.6 Thrombocytopenia, unspecified; F29 Unspecified psychosis not due to a substance or known physiological condition; J98.01 Acute bronchospasm; M81.0 Age-related osteoporosis without current pathological fracture; Z91.81 History of falling; Z86.73 Personal history of transient ischemic attack (TIA), and cerebral infarction without residual deficits; Z99.81 Dependence on supplemental oxygen; Z88.0 Allergy status to penicillin; Z68.35 Body mass index [BMI] 35.0-35.9, adult; Z88.5 Allergy status to narcotic agent
CPT/HCPCS: 36415-UA; 71045-TC; 71250-TC; 80053-TC; 83036-90; 83605; 83735-TC; 83880-TC; 84100-TC; 84484-TC; 85007-TC; 85025-TC; 87070; 87086-90; 93005; 94640; 94760; 97530; J1956; J2920; J3490; J7040; J7613; X3904; Z7610

== ENCOUNTER 2018-03-16 13:07 | Inpatient (IN) | payer MEDICARE, OTHER ==
[2018-03-16 14:15] VITALS: BP 101/69
[2018-03-16] MEDS ORDERED: Albuterol/Ipratropium Neb 3 ML AERS HHN PRN (14:30)
[2018-03-16] MEDS: Acetylcysteine 10% 10 ML VIAL HHN SCH ×2 (15:08→22:00)
[2018-03-16] MEDS: Albuterol/Ipratropium Neb 3 ML AERS HHN SCH ×2 (15:09→18:47)
[2018-03-16] MEDS ORDERED: Fleet Enema 135 mL RC PRN (15:35)
--- NOTE | 2018-03-16 23:27 | Progress Notes ---
DATE: 03/16/2018 IDENTIFICATION: An 82-year-old female. SUBJECTIVE: The patient seen and examined. The patient is lying in the bed. The patient was not discharged to [facility] yesterday, but now she is agree. The patient has no new complaint. PHYSICAL EXAMINATION: VITAL SIGNS: Temperature 96.2, pulse 80, respiratory rate 18, blood pressure 138/90. HEENT: No facial asymmetry. NECK: Supple, no JVD. HEART: Regular, no murmur. CHEST: Lung equal in expansion, no expiratory wheezing. ABDOMEN: Soft. EXTREMITIES: No edema. NEUROLOGIC: Nonfocal. CLINICAL IMPRESSION: 1. Left lower lobe pneumonia. 2. Bronchospasm, resolved. 3. Hypertension. 4. Degenerative joint disease. 5. Psychotic disorder. 6. Osteoporosis. 7. Declining self-care and mobility. PLAN: Discharge to Geropsych Unit under psychiatrist care with current medication. [facility]. JOB# [id number]
[2018-03-17] MEDS: Escitalopram Oxalate 5 mg Tab PO SCH ×2 (00:19→21:10)
--- NOTE | 2018-03-17 02:11 | Progress Notes ---
DATE: 03/16/2018 Case was discussed with staff of the patient, reviewed records. The patient continues to be depressed, overwhelmed, anhedonic, can overwhelmed, unable to make safe plan for self-care and feeling hopeless and helpless. The patient will be transferred to [facility], so far she is compliant with the medication with no side effects, no sedation, and no nausea. I will be increasing her Lexapro to 10 mg a day. We will continue to work with the patient in group therapy, milieu therapy, adjust medication as needed. Thank you very much for allowing me to participate in the care of this most interesting lady. JOB# [id number]
[2018-03-17] MEDS: APAP/Oxycodone 5/325mg Tab PO PRN ×2 (06:44→18:10)
[2018-03-17] MEDS: Albuterol/Ipratropium Neb 3 ML AERS HHN SCH ×4 (06:47→19:44)
[2018-03-17] MEDS: Acetylcysteine 10% 10 ML VIAL HHN SCH (07:12)
[2018-03-17 07:43] LABS: CHOLESTEROL 195 mg/dL (<200); HDL -HIGH DENSITY LIPOPROTEIN 89 mg/dL (23-92); TRIGLYCERIDES 208 mg/dL (<150)
[2018-03-17] MEDS: Multivitamin w/ Minerals Tab PO SCH (09:19)
[2018-03-17] MEDS: Lactobacillus Rhamnosus GG 15 Billion CFU CAP.SPRINK PO SCH (09:19)
[2018-03-17] MEDS: Potassium Chloride 10 mEq ER Tab PO SCH (09:19)
--- NOTE | 2018-03-17 16:42 | History & Physical ---
ADMIT DATE: 03/17/2018 PATIENT'S ID: An 82-year-old female. REQUESTING PHYSICIAN: José Miguel Crowder M.D., M.P.H. CHIEF COMPLAINT: "Doctor told me that he will help me." HISTORY OF PRESENT ILLNESS: An 82-year-old -[place] female resident of [facility], brought into the Emergency Room on 03/10 for psych evaluation, but noted that the patient was having left lower lobe pneumonia with significant bronchospasm. The patient was admitted to medical floor where the patient was treated and after treatment, the patient is transferred to Geropsych Unit for psychiatric treatment. PAST MEDICAL HISTORY: Remarkable for: 1. Chronic pain. 2. Hypertension. 3. Hyperlipidemia. 4. Peripheral neuropathy. 5. CHF. 6. DJD. 7. Dementia. 8. GERD. MEDICATIONS: At the time of transfer, which includes Tylenol, Mucomyst, DuoNeb, baclofen, Lotensin, Coreg, Celebrex, Lexapro, Lasix, gabapentin, Mucinex, Levaquin, Claritin, Nitrostat, oxycodone, potassiums, senna, Fleet's enema. ALLERGIES: The patient is allergic to CODEINE and PENICILLIN. SOCIAL HISTORY: She is a resident of [facility]. No smoking cigarette, alcohol, or drug use. FAMILY MEDICAL HISTORY: Remarkable for diabetes and hypertension. REVIEW OF SYSTEMS: The patient still has cough, but better than before. No shortness of breath, no fever, no chills, no abdominal pain. No history of nausea, vomiting, diarrhea, dysuria, hematuria, hematochezia, or melena. She has difficulty in walking and she is pretty much bedbound. PHYSICAL EXAMINATION: GENERAL: Alert, awake, lying in the bed without any acute distress. VITAL SIGNS: Temperature 98, pulse is 80, respiratory rate is 18, blood pressure 130/80. HEENT: Normocephalic, atraumatic. Extraocular muscles are intact. Tongue was pink and coated. Poor dentition noted. No oral lesion noted. NECK: Supple, no JVD. No hepatojugular reflex. No lymphadenopathy, thyromegaly, or carotid bruit. HEART: Both heart sounds are regular. No S3, no S4. CHEST AND LUNGS: Equal in expansion, no expiratory wheezing. ABDOMEN: Soft. No guarding or rigidity. Liver and spleen not palpable. No palpable mass. EXTREMITIES: No edema, no cyanosis. Peripheral pulses are present +1. No calf tenderness noted. NEUROLOGIC: Alert, awake, follows commands. Decreased power on both lower extremities noted with power of 3/5. AVAILABLE DIAGNOSTIC DATA: Has been reviewed. CLINICAL IMPRESSION: 1. Left lower lobe pneumonia. 2. Psychotic disorder. 3. Hypertension. 4. Degenerative joint disease. 5. Lower extremity weakness. Workup can be done as an outpatient. 6. Hypertension. 7. Congestive heart failure. 8. Degenerative joint disease. 9. Decline in self-care. 10. Obesity. PLAN: In the view of her illness, the patient will be continued on Levaquin, use nebulizer treatment, but discontinue Mucomyst. Psychotic evaluation and management deferred to psychiatrist. Appropriate home medicine reconciliation, fall precautions, nutritional support, general nursing care. We will continue to follow this patient during the stay in the hospital. I sincerely thank you, Dr. Crowder, for giving me opportunity to participate in the patient of yours. JOB# [id number]
--- NOTE | 2018-03-17 18:23 | Progress Notes ---
DATE: SUBJECTIVE: The patient was seen, chart reviewed, and findings were discussed with staff. The patient continues to be depressed, feeling hopeless, helpless, and unable to care for herself. The patient was started on Lexapro for depression yesterday by Dr. Michelle. Denies any undue side effects. PLAN: The patient currently tolerating medications well. We will continue to monitor and titrate as needed. [facility]# [id number]
[2018-03-18] MEDS: Albuterol/Ipratropium Neb 3 ML AERS HHN SCH ×4 (07:33→18:35)
[2018-03-18] MEDS ORDERED: Magnesium Hydroxide (MOM) 30 mL UDC PO PRN (08:59)
[2018-03-18] MEDS ORDERED: Maalox 30 mL Cup PO PRN (08:59)
[2018-03-18] MEDS: Potassium Chloride 10 mEq ER Tab PO SCH (09:05)
[2018-03-18] MEDS: Lactobacillus Rhamnosus GG 15 Billion CFU CAP.SPRINK PO SCH (09:05)
[2018-03-18] MEDS: Multivitamin w/ Minerals Tab PO SCH (09:05)
[2018-03-18] MEDS: APAP/Oxycodone 5/325mg Tab PO PRN (09:15)
--- NOTE | 2018-03-18 19:50 | Progress Notes ---
DATE: 03/18/2018 SUBJECTIVE: The patient was seen, chart reviewed, and discussed with staff. The patient continues to be very depressed, confused, disoriented. She has, however, been compliant with her medications, denying any undue side effects. Sleep and appetite have been within normal range, has not required any p.r.n. medications. PLAN: The patient continues to be depressed, so that she will require inpatient care center treatment. We will monitor patient on a daily basis for response to medications and titrate medications as needed. [facility]# [id number]
[2018-03-18] MEDS: Escitalopram Oxalate 5 mg Tab PO SCH (20:32)
[2018-03-19] MEDS: APAP/Oxycodone 5/325mg Tab PO PRN ×3 (01:46→18:23)
[2018-03-19] MEDS: Albuterol/Ipratropium Neb 3 ML AERS HHN SCH ×4 (06:46→19:09)
[2018-03-19] MEDS: Lactobacillus Rhamnosus GG 15 Billion CFU CAP.SPRINK PO SCH (09:09)
[2018-03-19] MEDS: Multivitamin w/ Minerals Tab PO SCH (09:09)
[2018-03-19] MEDS: Potassium Chloride 10 mEq ER Tab PO SCH (09:10)
[2018-03-19] MEDS ORDERED: Probiotic Screen MC PRN (09:15)
[2018-03-19] MEDS: Escitalopram Oxalate 5 mg Tab PO SCH (20:35)
[2018-03-20] MEDS: APAP/Oxycodone 5/325mg Tab PO PRN ×3 (00:27→21:16)
--- NOTE | 2018-03-20 04:41 | Progress Notes ---
DATE: 03/19/2018 PSYCHIATRIC PROGRESS NOTE SUBJECTIVE: Chart reviewed and the patient interviewed. Also discussed the patient's condition with the staff and reviewed records and labs. The patient is calmer and she seems to have less behavioral problems. She is in a depressed mood and continue to complain of feeling depressed. At the same time, the patient is compliant with taking Lexapro with no side effects. ASSESSMENT: The patient is still depressed. TREATMENT PLAN: We will continue monitoring behavior and condition closely. Also, continue to work on her ineffective coping and followup. JOB# [id number]
[2018-03-20] MEDS: Albuterol/Ipratropium Neb 3 ML AERS HHN SCH ×4 (07:06→19:21)
[2018-03-20] MEDS: Multivitamin w/ Minerals Tab PO SCH (08:36)
[2018-03-20] MEDS: Potassium Chloride 10 mEq ER Tab PO SCH (08:37)
[2018-03-20] MEDS: Lactobacillus Rhamnosus GG 15 Billion CFU CAP.SPRINK PO SCH (08:37)
[2018-03-20] MEDS: Escitalopram Oxalate 5 mg Tab PO SCH (21:11)
[2018-03-21] MEDS: Potassium Chloride 10 mEq ER Tab PO SCH (08:45)
[2018-03-21] MEDS: Multivitamin w/ Minerals Tab PO SCH (08:45)
[2018-03-21] MEDS: Lactobacillus Rhamnosus GG 15 Billion CFU CAP.SPRINK PO SCH (08:46)
[2018-03-21] MEDS: Albuterol/Ipratropium Neb 3 ML AERS HHN SCH ×2 (09:20→12:38)
[2018-03-21] MEDS: APAP/Oxycodone 5/325mg Tab PO PRN (13:20)
--- NOTE | 2018-03-22 07:54 | Discharge Summary ---
DATE OF DISCHARGE: 03/21/2018 PATIENT'S AGE: 82. SEX: Female. PHYSICIAN: Dr. Crowder. FINAL DIAGNOSIS/PRIMARY DIAGNOSIS: Unspecified psychosis. SECONDARY DIAGNOSIS: Dementia, moderate to severe, with psychotic features. REASON FOR HOSPITALIZATION: The patient was sent to the hospital from [facility] because of increased agitation, irritability, and aggressive behavior. Also, she was severely depressed, withdrawn, and did not want to deal when any of the patient's issues. HOSPITAL COURSE: The patient continued to be depressed, agitated, and withdrawn. The patient wants to be left alone. She was interacting minimally with others. The patient was started on Lexapro in a dose of 5 mg every day. Gradually, the patient's affect was brighter. The patient was less depressed and less agitated. She also interacted more with peers and others. The patient has no major behavioral problems. The patient was not suicidal or homicidal. The patient was discharged from the hospital. Physical exam of the patient showed no major medical problems. AFTER DISCHARGE PLANS: The patient discharged from the hospital with plans to continue her treatment as an outpatient. EXPECTED OUTCOME AFTER DISCHARGE: Fair if the patient continued to take her psychotropic medications and follow up with discharge plans. [facility]# [id number]
--- NOTE | 2018-03-22 10:46 | Discharge Summary ---
DATE OF DISCHARGE: 03/21/2018 HOSPITAL COURSE: The patient was supposed to be discharged yesterday and for unknown reason to me, the patient did not discharge and the staff was not able to tell me the reason for her not being discharged. Nobody notified me also was cancellation of her discharge, which also unacceptable and does not coincide where the Medicare goes. I will discuss that with the administration and I did call the POWER MACHINE OPERATOR of the hospital and never answered my call. The patient has been calm and has not exhibiting any acute issues requires her to be admitted to the hospital. However, recommend at this time that the patient would be discharged today and I dictated the discharge summary for the patient. At the same time, I will follow up with administration about that issue because this happened several times other patients there. At the same time, the patient's discharge summary has not changed than the day before. JOB# [id number]
== END 2018-03-21 14:45 | DRG 885 ==
LOC: GERO 13:07
PROVIDERS: ADMIT Psychiatry & Neurology Psychiatry; ATTEND Psychiatry & Neurology Psychiatry
DX: F29 Unspecified psychosis not due to a substance or known physiological condition (principal); I11.0 Hypertensive heart disease with heart failure; J18.1 Lobar pneumonia, unspecified organism; F03.91 Unspecified dementia, unspecified severity, with behavioral disturbance; I50.9 Heart failure, unspecified; E66.9 Obesity, unspecified; J98.01 Acute bronchospasm; M19.90 Unspecified osteoarthritis, unspecified site; M81.0 Age-related osteoporosis without current pathological fracture; G89.29 Other chronic pain; M62.81 Muscle weakness (generalized); E78.5 Hyperlipidemia, unspecified; G62.9 Polyneuropathy, unspecified; K21.9 Gastro-esophageal reflux disease without esophagitis; Z88.5 Allergy status to narcotic agent; Z88.0 Allergy status to penicillin; Z83.3 Family history of diabetes mellitus; Z82.49 Family history of ischemic heart disease and other diseases of the circulatory system; Z68.35 Body mass index [BMI] 35.0-35.9, adult
CPT/HCPCS: 36415-UA; 80061-TC; 83036-90; 94760; Z7610